=== PATIENT | male | born 1960 | race Caucasian/White ===

== ENCOUNTER 2022-05-22 11:36 | Emergency (ER) | payer OTHER ==
--- OUTSIDE RECORDS SUMMARY | 2022-05-22 11:38 | XMS REPORT | Continuity of Care Document ---
:1960 Author Organization [facility] t Address [address] [place] [address] Care Team Providers Name Role Phone JEFF DEGROOT Attending Clinician Unavailable MARÍA ELENA SANDERS Attending Clinician Unavailable Payers Payer Name Policy Type Policy Number Effective Date Expiration Date S ource OPEN ACCESS [id number] HMO/POS/EPO/PPO - [employer] Problems This patient has no known problems. Allergies, Adverse Reactions, Alerts This patient has no known allergies or adverse reactions. Social History Social Habit Start Date Stop Date Quantity Comments Source Sex Assigned At [birth year] [facility] [employer] [facility] 00:00:00 00:00:00 Medicine Smoking Status Start Date Stop Date Source Tobacco smoking consumption unknown [facility] Medications This patient has no known medications. Procedures This patient has no known procedures. Plan of Care Planned Activity Planned Date Details Comments Source Future Scheduled 2022-03-23 Human immunodeficiency B [facility] 11:15:10 virus screening Medicine (procedure) [code = [id number]] Future Scheduled 2022-03-23 ZOSTER VACCINE (1 of 2) [facility] 11:15:10 [code = ZOSTER VACCINE (1 Me dicine of 2)] Future Scheduled 2022-03-23 COVID-19 Vaccine (3 - Ba [facility] 11:15:10 Booster for Pfizer Medicine series) [code = COVID-19 Vaccine (3 - Booster for Pfizer series)] Future Scheduled 2022-03-23 FLU VACCINE > 6 MONTHS B [facility] 11:15:10 [code = FLU VACCINE > 6 Medi cine MONTHS] Future Scheduled 2022-03-23 Screening for malignant [facility] 11:15:10 neoplasm of colon Medicine (procedure) [code = [id number]] Future Scheduled 2022-03-23 TETANUS SHOT (ADULT) [facility] 11:15:10 [code = TETANUS SHOT Medicin e (ADULT)] Encounters Start End Encounter Admission Attending Care Care Encounter Source Date/Time Date/Time Type Type Clinicians Facility Department ID 2022-03-08 2022-03-08 Office APPLE DEGROOT [id number] [facility] 12:12:45 16:15:40 Visit JEFF AMBULATOR [id number] [employer] [id number] [facility] lexii 810 e 2022-02-04 2022-02-04 Outpatient TOMMY, [facility] [id number] [place] 00:00:00 00:00:00 MARÍA ELENA Mccarthy Method [facility] Results This patient has no known results.
[2022-05-22] MEDS ORDERED: ACETAMINOPHEN 500 MG TAB ONE (13:12)
[2022-05-22] MEDS ORDERED: NA CHLORIDE 0.9% 1,000 ML ONE (13:12)
[2022-05-22 13:20] LABS: Absolute Lymphocytes (CBC) 0.9 K/uL (0.7-4.9); Hematocrit 44.3 % (39.6-49.0); Lymphocytes % 13.3 % (15.3-44.8); MCV 88.3 fL (80-100); MPV 7.4 fL (7.6-11.3); RBC Red Blood Cell Count 5.02 M/uL (4.33-5.43)
[2022-05-22 13:20] LABS: Urine Blood Trace-intact (Negative); Urine Glucose Negative (Negative); Urine Protein Negative (Negative); Urine Specific Gravity 1.025 (1.005-1.030)
[2022-05-22 13:28] LABS: Albumin 4.1 g/dL (3.4-5.0); Bilirubin Total 0.5 mg/dL (0.2-1.0); Protein, Total 7.9 g/dL (6.4-8.2)
[2022-05-22 13:39] LABS: Potassium 4.3 mmol/L (3.5-5.1)
--- NOTE | 2022-05-22 13:52 | RAD REPORT ---
EXAM DESCRIPTION: RAD - Chest Single View - 05/22/2022 1:04 pm CLINICAL HISTORY: MALAISE Chest pain. COMPARISON: Chest Pa And Lat (2 Views) dated 02/16/2019; CHEST PA AND LAT 2 VIEW dated 12/18/2014; CHEST PA AND LAT 2 VIEW dated 12/14/2014; CHEST PA AND LAT 2 VIEW dated 12/13/2014 FINDINGS: Portable technique limits examination quality. The lungs are grossly clear. The heart is normal in size. No displaced fractures. IMPRESSION: No acute intrathoracic process suspected.
--- NOTE | 2022-05-22 14:06 | ER ---
Nurse's Notes [facility] Name: Tyler Riley Age: 61 yrs Sex: Male : 1960 Arrival Date: 05/22/2022 Time: 11:42 Bed 4 Private MD: Tucker Lucero Diagnosis: Influenza due to other identified influenza virus with other respiratory manifestations;SARS-associated coronavirus as the cause of diseases classified elsewhere Presentation: 05/22 11:53 Chief complaint: Spouse and/or significant other states: the patient has been weak and ap3 has had increased confusion X's 2 days. it is also reported the patient has had a decreased appetite. Patients states she thought maybe he had the flu, but she started getting concerned because he was getting worse, not better. Coronavirus screen: Client presents with at least one sign or symptom that may indicate coronavirus-19. Ebola Screen: No symptoms or risks identified at this time. Initial Sepsis Screen: Does the patient meet any 2 criteria? RR > 20 per min. HR > 90 bpm. Initial Sepsis Screen: Does the patient meet any 2 criteria? Does the patient have a suspected source of infection? No. Patient's initial sepsis screen is negative. Risk Assessment: Do you want to hurt yourself or someone else? Patient reports no desire to harm self or others. Onset of symptoms was May 20, 2022. 11:53 Method Of Arrival: Ambulatory ap3 11:53 Acuity: POLLY 3 ap3 Triage Assessment: 11:57 General: Appears ill, Behavior is calm, Reports fever for fatigue for. Pain: Denies ap3 pain. Neuro: Level of Consciousness is awake, alert, Oriented to person, place, patient has dememtia. Gait is steady, Reports weakness. Cardiovascular: Patient's skin is warm and dry. Respiratory: Airway is patent Respiratory effort is even, unlabored, Respiratory pattern is regular, tachypnea. Historical: - Allergies: 14:24 No Known Allergies; jl7 - PMHx: 14:24 Dementia; Hypertensive disorder; jl7 - Immunization history:: Adult Immunizations unknown. - Social history:: Smoking status: unknown. Screenin:58 Abuse screen: Denies threats or abuse. Nutritional screening: No deficits noted. ap3 Tuberculosis screening: No symptoms or risk factors identified. 12:00 Fall Risk Secondary diagnosis (15 points) dementia, IV access (20 points). Total [place] jl7 Fall Scale indicates Low Risk Score (25-44 pts). Fall prevention measures have been instituted. Side Rails Up X 2 Frequent Obs/Assesments occuring Family Present and informed to notify staff if they need to leave bedside As available Patient and Family Educated on Fall Prevention Program and strategies. Assessment: 12:00 General: Appears in no apparent distress. uncomfortable, Behavior is calm, cooperative, jl7 appropriate for age. Pain: Denies pain. Neuro: Level of Consciousness is awake, alert, obeys commands, Oriented to person. Cardiovascular: Patient's skin is warm and dry. Respiratory: Airway is patent Respiratory effort is even, unlabored, Respiratory pattern is regular, symmetrical. Derm: Skin is pink, warm \\T\\ dry. Vital Signs: 11:53 BP 112 / 85; Pulse 127; Resp 24; Temp 100.6; Pulse Ox 99% ; Weight 77.11 kg; Height 5 ap3 ft. 5 in. (165.10 cm); 14:00 BP 117 / 65; Pulse 102; Resp 15; Temp 98; Pulse Ox 96% on R/A; jl7 11:53 Body Mass Index 28.29 (77.11 kg, 165.10 cm) ap3 ED Course: 11:42 Patient arrived in ED. am2 11:42 Tucker Lucero MD is Private Physician. am2 11:56 Triage completed. ap3 11:58 Arm band placed on left wrist. ap3 12:13 Patient has correct armband on for positive identification. Placed in gown. Bed in low ap3 position. Call light in reach. Side rails up X 1. Adult w/ patient. school lunch monitor on. Pulse ox on. NIBP on. Door closed. Noise minimized. 12:17 Titus Norris is PHCP. jl9 12:17 Gilberto Dutton MD is Attending Physician. jl9 12:22 Tod Wayne RN is Primary Nurse. jl7 12:30 Initial lab(s) drawn, by me, sent to lab. COVID swab sent to lab. Inserted saline lock: jl7 22 gauge in left antecubital area, using aseptic technique. Blood collected. 13:05 XRAY Chest (1 view) In Process Unspecified. EDMS 13:35 Flu Sent. kc6 13:35 SARS-COV-2 RT PCR (Document "Date of Onset" if Symptomatic) Sent. kc6 14:28 No provider procedures requiring assistance completed. IV discontinued, intact, jl7 bleeding controlled, No redness/swelling at site. Pressure dressing applied. Administered Medications: 13:08 Drug: Acetaminophen 1000 mg Route: PO; jl7 14:00 Follow up: Response: No adverse reaction; Temperature is decreased jl7 13:09 Drug: NS 0.9% 1000 ml Route: IV; Rate: 1000 ml; Site: left antecubital; jl7 14:00 Follow up: Response: No adverse reaction; IV Status: Completed infusion; IV Intake: jl7 1000ml Medication: 14:00 VIS not applicable for this client. jl7 Intake: 14:00 IV: 1000ml; Total: 1000ml. jl7 Outcome: 14:06 Discharge ordered by . jl9 14:28 Discharged to home ambulatory, with significant other. jl7 14:28 Condition: stable 14:28 Discharge instructions given to patient, family, Instructed on discharge instructions, follow up and referral plans. medication usage, Demonstrated understanding of instructions, follow-up care, medications, Prescriptions given X 1. 14:28 Patient left the ED. jl7 Signatures: Dispatcher [employer] EDMS Tod Wayne RN RN jl7 Claudine Moran Amanda, RN RN ap3 Titus Norris jl9 Chelsea Eric kc6 Corrections: (The following items were deleted from the chart) 12:48 11:56 Allergies: No Known Allergies; ap3 jl 12:48 11:56 PMHx: Dementia; ap3 jl 12:48 11:56 PMHx: Hypertensive disorder; ap3 jl 12:48 11:56 PMHx: Hypothyroidism; ap3 jl9 12:48 11:56 PMHx: enlarged prostate; ap3 jl9 12:48 11:56 Immunization history: Client reports receiving the 2nd dose of the Covid vaccine, 9 12:48 11:56 Social history: Smoking status: Patient denies any tobacco usage or history of. jl9 ap3
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
[2022-05-22 15:21] VITALS: BP 117/65; TEMP 98; O2SAT 96
== END 2022-05-22 14:28 | disposition home or self-care (01) ==
LOC: ER 11:36
DX: U07.1 COVID-19 (principal); I10 Essential (primary) hypertension; F03.90 Unspecified dementia, unspecified severity, without behavioral disturbance, psychotic disturbance, mood disturbance, and anxiety
CPT/HCPCS: 85025; 36415; 83605; 81003; 80053; 87804 ×2; 71045; 96360; 99284; U0003; J7030

== ENCOUNTER 2022-08-01 17:23 | Emergency (ER) | payer OTHER ==
--- OUTSIDE RECORDS SUMMARY | 2022-08-01 17:25 | XMS REPORT | Continuity of Care Document ---
:1960 Author Organization [facility] t Address [address] [place] [address] Care Team Providers Name Role Phone Nic JAMA, Tucker Primary Care Physician JEFF DEGROOT Attending Clinician Unavailable Norma JAMA, Cheo Adams Attending Clinician Payers Payer Name Policy Type Policy Number Effective Date Expiration Date S ource OPEN ACCESS [id number] HMO/POS/EPO/PPO - [employer] Problems This patient has no known problems. Allergies, Adverse Reactions, Alerts This patient has no known allergies or adverse reactions. Social History Social Habit Start Date Stop Date Quantity Comments Source Sex Assigned At [birth year] [facility] 00:00:00 00:00:00 Smoking Status Start Date Stop Date Source Tobacco smoking consumption unknown [facility] Medications This patient has no known medications. Procedures This patient has no known procedures. Plan of Care Planned Activity Planned Date Details Comments Source Future Scheduled 2022-03-23 Human immunodeficiency B [facility] 11:15:10 virus screening Medicine (procedure) [code = [id number]] Future Scheduled 2022-03-23 ZOSTER VACCINE (1 of 2) [facility] Test 11:15:10 [code = ZOSTER VACCINE (1 Me dicine of 2)] Future Scheduled 2022-03-23 COVID-19 Vaccine (3 - Ba [facility] Test 11:15:10 Booster for Pfizer Medicine series) [code = COVID-19 Vaccine (3 - Booster for Pfizer series)] Future Scheduled 2022-03-23 FLU VACCINE > 6 MONTHS B [facility] Test 11:15:10 [code = FLU VACCINE > 6 Medi cine MONTHS] Future Scheduled 2022-03-23 Screening for malignant [facility] 11:15:10 neoplasm of colon Medicine (procedure) [code = [id number]] Future Scheduled 2022-03-23 TETANUS SHOT (ADULT) [facility] 11:15:10 [code = TETANUS SHOT Medicin e (ADULT)] Encounters Start End Encounter Admission Attending Care Care Encounter Source Date/Time Date/Time Type Type Clinicians Facility Department ID 2022-03-08 2022-03-08 Office APPLE DEGROOT [id number] 12:12:45 16:15:40 Visit JEFF AMBULATOR [id number] College Y 0.2.7.2.686 of [id number] Medi lexii 810 e 2022-02-04 2022-02-04 [place] [id number] Methodi 23:59:00 23:59:00 Encounter Cheo StarkeyNuvia [id number] 3.430.2.7 Hospit a .[id number] l .8 2022-02-04 2022-02-04 Outpatient [facility] [id number] [place] 00:00:00 00:00:[address] 2022-01-20 2022-01-20 Travel 1.2.840.1 [id number] Methodi 00:00:00 00:00:[id number] 3.430.2.7 0.2.7.3.698 Ho spita .[id number] 084.8 l .8 2022-01-19 2022-01-19 [address]840.1 [id number] Methodi 00:00:00 00:00:00 Orders Fowler LalitoNuvia [address] 3.430.2.7 Hospit a .[id number] l .8 Results This patient has no known results.
[2022-08-01] MEDS ORDERED: LORAZEPAM 1 MG TABLET ONE (18:56)
[2022-08-01 20:14] LABS: Hematocrit 24.8 % (39.6-49.0); Lymphocytes % 13.3 % (15.3-44.8); MCV 90.7 fL (80-100); MPV 7.3 fL (7.6-11.3); RBC Red Blood Cell Count 2.74 M/uL (4.33-5.43)
[2022-08-01 20:22] LABS: Potassium 3.7 mmol/L (3.5-5.1)
[2022-08-01 20:52] LABS: Urine Blood Negative (Negative); Urine Glucose Negative (Negative); Urine Protein Trace (Negative); Urine Specific Gravity 1.025 (1.005-1.030); Urine pH 6.5 (5.0-7.0)
[2022-08-01] MEDS ORDERED: LORazepam 2 MG/ML VIAL ONE (20:57)
[2022-08-01 21:07] LABS: Urine Mucus Slight /HPF (None Seen); Urine RBC <5 /HPF (None Seen)
--- NOTE | 2022-08-01 21:32 | ER ---
Nurse's Notes [facility] Name: Tyler Riley Age: 62 yrs Sex: Male : 1960 Arrival Date: 08/01/2022 Time: 17:28 Bed 17 Private MD: Diagnosis: Dementia in other diseases classified elsewhere with behavioral disturbance;Decreased urinary output Presentation: 08/01 17:39 Chief complaint: Spouse and/or significant other states: he lives in [place] and he tw2 has alzheimers and dementia. they say he hasnt urinated since last night. he has aphasia and doesn't speak. he does have an enlarged prostate as well. he brought the staff in but he isnt urinating. he has not been eating well since yesterday. he did start abx Sulfa for UTI on 07/30. Coronavirus screen: At this time, the client does not indicate any symptoms associated with coronavirus-19. Ebola Screen: Patient denies travel to an Ebola-affected area in the 21 days before illness onset. Initial Sepsis Screen: Does the patient meet any 2 criteria? No. Patient's initial sepsis screen is negative. Does the patient have a suspected source of infection? No. Patient's initial sepsis screen is negative. Risk Assessment: Do you want to hurt yourself or someone else? Patient reports no desire to harm self or others. Onset of symptoms was August 01, 2022. 17:39 Method Of Arrival: Wheelchair tw2 17:39 Acuity: POLLY 3 tw2 Triage Assessment: 17:43 General: Appears in no apparent distress. well groomed, Behavior is calm. Pain: Unable tw2 to use pain scale. Patient appears quiet. Neuro: Level of Consciousness is awake, Oriented to person. Historical: - Allergies: 17:43 No Known Allergies; tw2 - PMHx: 17:43 Dementia; Hypertensive disorder; Hypothyroidism; Hypercholesterolemia; Pick's disease; tw2 Aphasia; - PSHx: 17:43 None; tw2 - Immunization history:: Adult Immunizations up to date, Client reports receiving the 2nd dose of the Covid vaccine. - Social history:: Smoking status: Patient denies any tobacco usage or history of. Screenin:15 Abuse screen: Denies threats or abuse. Denies injuries from another. Nutritional ll3 screening: No deficits noted. Tuberculosis screening: No symptoms or risk factors identified. 21:33 Fall Risk No fall in past 12 months (0 pts). Secondary diagnosis (15 points) dementia, ll3 IV access (20 points). Ambulatory Aid- None/Bed Rest/Nurse Assist (0 pts). Gait- Normal/Bed Rest/Wheelchair (0 pts) Mental Status- Overestimates/Forgets Limitations (15 pts.). Total De Santiago Fall Scale indicates High Risk Score (45 or more points). Fall prevention measures have been instituted. Side Rails Up X 2 Placed Close to Nursing Station Family Present and informed to notify staff if the need to leave the bedside As available patient and family educated on Fall Prevention Program and Strategies. Assessment: 19:15 General: Appears in no apparent distress. Behavior is calm, cooperative. : ll3 Parent/caregiver report the patient having inability to void since yesterday. Derm: Skin is pink, warm \T\ dry. 20:03 Reassessment: No changes from previously documented assessment. Patient and/or family ll3 updated on plan of care and expected duration. Pain level reassessed. Patient is alert, oriented x 3, equal unlabored respirations, skin warm/dry/pink. 21:05 Reassessment: Pt spouse states pt will not stay in bed and is very anxious, Dr. Murphy ll3 notified, medicated as ordered. Vital Signs: 17:39 BP 109 / 67; Pulse 100; Resp 17; Temp 99.5(TE); Pulse Ox 95% on R/A; Weight 70.31 kg tw2 (R); Height 5 ft. 5 in. (165.10 cm); 20:02 BP 99 / 81; Pulse 98; Resp 18; Pulse Ox 98% on R/A; ll3 21:06 BP 108 / 69; Pulse 96; Resp 17; Pulse Ox 97% on R/A; ll3 17:39 Body Mass Index 25.79 (70.31 kg, 165.10 cm) tw2 ED Course: 17:28 Patient arrived in ED. ja2 17:43 Triage completed. tw2 17:45 Arm band placed on. tw2 18:12 Anil Dowd PA is PHCP. jm 18:12 Gilberto Dutton MD is Attending Physician. jm 18:35 Robel Moreno, REGINE is Primary Nurse. bp 19:15 Patient has correct armband on for positive identification. Placed in gown. Bed in low ll3 position. Call light in reach. Side rails up X 1. 20:02 Moon cath inserted, using sterile technique, 16 Fr., by me, balloon inflated, to ll3 gravity drainage, clamped. 20:02 Initial lab(s) drawn, by me, sent to lab. First set of blood cultures drawn Second set ll3 of blood cultures drawn. Inserted saline lock: 20 gauge in left antecubital area, using aseptic technique. Blood collected. 20:04 Attending Physician role handed off by Gilberto Dutton MD ms3 20:04 Shivam Murphy DO is Attending Physician. ms3 21:32 No provider procedures requiring assistance completed. Moon cath removed intact, ll3 balloon deflated. IV discontinued, intact, bleeding controlled, No redness/swelling at site. Pressure dressing applied. Administered Medications: 19:00 Drug: Ativan (LORazepam) 1 mg Route: PO; bp 21:03 Follow up: Response: No adverse reaction ll3 21:02 Drug: Ativan (LORazepam) 0.5 mg Route: IVP; Site: left antecubital; ll3 21:51 Follow up: Response: No adverse reaction; Marked relief of symptoms ll3 Medication: 21:33 VIS not applicable for this client. ll3 Outcome: 21:31 Discharge ordered by . ms3 21:51 Discharged to home via wheelchair, with friend, with significant other. ll3 21:51 Condition: stable 21:51 Discharge instructions given to family, significant other, Instructed on discharge instructions, follow up and referral plans. Demonstrated understanding of instructions, follow-up care. 21:51 Patient left the ED. ll3 Signatures: Anil Dowd PA PA jmm Wise, Tara, RN RN tw2 Robel Moreno RN RN bp Shivam Murphy DO DO ms3 Joanne Toussaint Lynsea, RN RN ll3
--- NOTE | 2022-08-01 21:32 | EDPHYS ---
Physician Documentation [facility] Name: Tyler Riley Age: 62 yrs Sex: Male : 1960 Arrival Date: 08/01/2022 Time: 17:28 Bed 17 Private MD: ED Physician Shivam Murphy HPI: 08/01 18:19 This 62 yrs old Male presents to ER via Wheelchair with complaints of Urinary Problem. jmm 18:19 This is a 62-year-old male with history of dementia, hypertension, hypothyroidism, jmm hyperlipidemia the presents emerged department with concerns of no urination since last night. Family denies vomiting. Patient is nonverbal. Patient is currently taking Bactrim for UTI. Historical: - Allergies: 17:43 No Known Allergies; tw2 - PMHx: 17:43 Dementia; Hypertensive disorder; Hypothyroidism; Hypercholesterolemia; Pick's disease; tw2 Aphasia; - PSHx: 17:43 None; tw2 - Immunization history:: Adult Immunizations up to date, Client reports receiving the 2nd dose of the Covid vaccine. - Social history:: Smoking status: Patient denies any tobacco usage or history of. ROS: 18:19 Unable to obtain ROS due to altered mental status, baseline dementia. [facility] Exam: 18:19 Head/Face: atraumatic. Eyes: EOMI, no conjunctival erythema appreciated ENT: Moist [facility] Mucus Membranes Neck: Trachea midline, Supple Chest/axilla: Normal chest wall appearance and motion. Cardiovascular: Regular rate and rhythm. No edema appreciated Respiratory: Normal respirations, no respiratory distress appreciated 18:19 Skin: General appearance color normal MS/ Extremity: Moves all extremities, no obvious deformities appreciated, no edema noted to the lower extremities Neuro: Awake and alert Psych: Behavior is normal, Mood is normal, Patient is cooperative and pleasant 18:19 Constitutional: The patient appears in no acute distress. 18:19 Abdomen/GI: Inspection: abdomen appears normal, Bowel sounds: normal, Palpation: soft, nontender, in all quadrants. Vital Signs: 17:39 BP 109 / 67; Pulse 100; Resp 17; Temp 99.5(TE); Pulse Ox 95% on R/A; Weight 70.31 kg tw2 (R); Height 5 ft. 5 in. (165.10 cm); 20:02 BP 99 / 81; Pulse 98; Resp 18; Pulse Ox 98% on R/A; ll3 21:06 BP 108 / 69; Pulse 96; Resp 17; Pulse Ox 97% on R/A; ll3 17:39 Body Mass Index 25.79 (70.31 kg, 165.10 cm) tw2 MDM: 18:19 Patient medically screened. [facility] 21:31 Data reviewed: vital signs, nurses notes, lab test result(s), and as a result, I will ms3 discharge patient. Counseling: I had a detailed discussion with the patient and/or guardian regarding: the historical points, exam findings, and any diagnostic results supporting the discharge/admit diagnosis, lab results, the need for outpatient follow up, to return to the emergency department if symptoms worsen or persist or if there are any questions or concerns that arise at home. Special discussion: I discussed with the patient/guardian in detail that at this point there is no indication for admission to the hospital. It is understood, however, that if the symptoms persist or worsen the patient needs to return immediately for re-evaluation. ED course: Discussed labs with patient's . Patient to return to nursing facility. Patient's understands agrees with plan. Patient to follow-up with primary care physician in 2 to 3 days. All questions were answered. Patient destiny in stable condition, no apparent distress, nontoxic-appearing.. 08/01 19:31 Order name: CBC with Diff; Complete Time: 20:34 [facility] 08/01 19:31 Order name: BMP; Complete Time: 20:34 [facility] 08/01 19:31 Order name: Blood Culture Adult (2) [facility] 08/01 20:34 Order name: Urine Microscopic Only; Complete Time: 21:22 nm3 08/01 20:52 Order name: Urine Dipstick-Ancillary; Complete Time: 20:55 [facility] 08/01 18:19 Order name: Moon; Complete Time: 20:03 [facility] 08/01 20:34 Order name: Urine Dipstick-Ancillary (obtain specimen); Complete Time: 20:54 ms3 Administered Medications: 19:00 Drug: Ativan (LORazepam) 1 mg Route: PO; bp 21:03 Follow up: Response: No adverse reaction ll3 21:02 Drug: Ativan (LORazepam) 0.5 mg Route: IVP; Site: left antecubital; ll3 21:51 Follow up: Response: No adverse reaction; Marked relief of symptoms ll3 Disposition: 08/02 01:11 Co-signature as Attending Physician, Shivam Murphy DO. ms3 01:13 Chart complete. ms3 Disposition Summary: 08/01/22 21:31 Discharge Ordered Location: Home ms3 Condition: Stable ms3 Diagnosis - Dementia in other diseases classified elsewhere with behavioral disturbance ms3 - Decreased urinary output ms3 Followup: ms3 - With: Private Physician - When: 2 - 3 days - Reason: Discharge Instructions: - Discharge Summary Sheet ms3 - Dementia ms3 Forms: - Medication Reconciliation Form ms3 - Thank You Letter ms3 - Antibiotic Education ms3 - Prescription Opioid Use ms3 Signatures: Dispatcher [employer] EDAnil Vickers PA PA jmm Wise, Tara, RN RN tw2 Robel Moreno RN Shivam Childers DO DO ms3 Romi Hannon RN RN ll3 Corrections: (The following items were deleted from the chart) 01:13 01:11 Co-signature as Attending Physician, Shivam Murphy DO I was immediately available ms3 onsite in the emergency department for consultation in the care of the patient. ms3
[2022-08-01 22:24] VITALS: TEMP 99.5
[2022-08-01 22:26] VITALS: BP 108/69; O2SAT 97
== END 2022-08-01 21:51 | disposition home or self-care (01) ==
LOC: ER 17:23
DX: R39.12 Poor urinary stream (principal); F02.80 Dementia in other diseases classified elsewhere, unspecified severity, without behavioral disturbance, psychotic disturbance, mood disturbance, and anxiety
CPT/HCPCS: 36415; 51702; 80048; 81003; 81015; 85025; 87040; 96374; 99284

== ENCOUNTER 2022-08-04 18:56 | Emergency (ER) | payer OTHER ==
--- OUTSIDE RECORDS SUMMARY | 2022-08-04 18:58 | XMS REPORT | Continuity of Care Document ---
:1960 Author Organization [facility] t Address [address] [place] [address] Care Team Providers Name Role Phone Nic JAMA, Tucker Primary Care Physician JEFF DEGROOT Attending Clinician Unavailable Norma JAMA, Cheo Adams Attending Clinician Payers Payer Name Policy Type Policy Number Effective Date Expiration Date S ource OPEN ACCESS [id number] HMO/POS/EPO/PPO - [employer] Problems This patient has no known problems. Allergies, Adverse Reactions, Alerts This patient has no known allergies or adverse reactions. Social History Social Habit Start Date Stop Date Quantity Comments Source Sex Assigned At [birth year] [facility] 00:00:00 00:00:00 Smoking Status Start Date Stop Date Source Tobacco smoking consumption unknown [facility] Medications This patient has no known medications. Procedures This patient has no known procedures. Plan of Care Planned Activity Planned Date Details Comments Source Future Scheduled 2022-03-23 Human immunodeficiency B [facility] of Test 11:15:10 virus screening Medicine (procedure) [code = 008541508] Future Scheduled 2022-03-23 ZOSTER VACCINE (1 of 2) [facility] of Test 11:15:10 [code = ZOSTER VACCINE (1 Me dicine of 2)] Future Scheduled 2022-03-23 COVID-19 Vaccine (3 - Ba [facility] Test 11:15:10 Booster for Pfizer Medicine series) [code = COVID-19 Vaccine (3 - Booster for Pfizer series)] Future Scheduled 2022-03-23 FLU VACCINE > 6 MONTHS B [facility] Test 11:15:10 [code = FLU VACCINE > 6 Medi cine MONTHS] Future Scheduled 2022-03-23 Screening for malignant [facility] 11:15:10 neoplasm of colon Medicine (procedure) [code = 645409311] Future Scheduled 2022-03-23 TETANUS SHOT (ADULT) [facility] 11:15:10 [code = TETANUS SHOT Medicin e (ADULT)] Encounters Start End Encounter Admission Attending Care Care Encounter Source Date/Time Date/Time Type Type Clinicians Facility Department ID 2022-03-08 2022-03-08 Office APPLE DEGROOT [id number] [facility] 12:12:45 16:15:40 Visit JEFF AMBULATOR 350.1.13.21 [employer] 0.2.7.2.686 of [id number] [facility] lexii 810 e 2022-02-04 2022-02-04 [facility], 1.2.840.1 [id number] Methodi 23:59:00 23:59:00 Encounter Cheo Adams [id number] 3.430.2.7 Hospit a .3.872131 l .8 2022-02-04 2022-02-04 [facility], 1.2.840.1 [id number] Methodi 23:59:00 23:59:00 Encounter Cheo Adams [id number] 3.430.2.7 Hospit a .3.868670 l .8 2022-01-20 2022-01-20 Travel 1.2.840.1 [id number] [id number] Methodi 00:00:00 00:00:[id number] 3.430.2.7 0.2.7.3.698 Ho spita .3.428772 084.8 l .8 2022-01-20 2022-01-20 Travel 1.2.840.1 [id number] [id number] Methodi 00:00:00 00:00:[address] 3.430.2.7 0.2.7.3.698 Ho spita .3.349490 084.8 l .8 2022-01-19 2022-01-19 [facility] 1.2.840.1 [id number] Methodi 00:00:00 00:00:00 Orders Cheo Adams [id number] 3.430.2.7 Hospit a .3.915805 l .8 2022-01-19 2022-01-19 [facility], 1.2.840.1 [id number] Methodi 00:00:00 00:00:00 Orders Cheo Adams [id number] 3.430.2.7 Hospit a .3.201132 l .8 Results This patient has no known results.
[2022-08-04 21:15] LABS: Urine Blood 1+ (Negative); Urine Glucose Negative (Negative); Urine Protein Negative (Negative); Urine pH 6.5 (5.0-7.0)
[2022-08-04 21:54] LABS: Calcium Oxalate Crystals- Ur Few /HPF (None Seen); Urine Bacteria <20 /HPF (<20); Urine Crystals Unidentified Few /HPF (None Seen); Urine Mucus 1+ /HPF (None Seen)
--- NOTE | 2022-08-04 21:59 | ER ---
Nurse's Notes [facility] Name: Tyler Riley Age: 62 yrs Sex: Male : 1960 Arrival Date: 08/04/2022 Time: 19:03 Bed 4 Private MD: Diagnosis: Hematuria, unspecified Presentation: 08/04 19:05 Chief complaint: EMS states: Unable to empty bladder x 2 days per care home staff. ss Coronavirus screen: Client denies travel out of the [place] in the last 14 days. Ebola Screen: Patient denies exposure to infectious person. Patient denies travel to an Ebola-affected area in the 21 days before illness onset. Initial Sepsis Screen: Does the patient meet any 2 criteria? No. Patient's initial sepsis screen is negative. Does the patient have a suspected source of infection? No. Patient's initial sepsis screen is negative. Risk Assessment: Do you want to hurt yourself or someone else? Patient reports no desire to harm self or others. Onset of symptoms was August 02, 2022. 19:05 Method Of Arrival: EMS: [facility] 19:05 Acuity: POLLY 3 ss Historical: - Allergies: 19:12 No Known Allergies; ss - PMHx: 19:12 Aphasia; Dementia; Hypercholesterolemia; Hypertensive disorder; Hypothyroidism; Pick's ss disease; - Immunization history:: Adult Immunizations unknown. - Social history:: Smoking status: Patient denies any tobacco usage or history of. Screenin:28 Abuse screen: Denies threats or abuse. Nutritional screening: No deficits noted. vc1 Tuberculosis screening: No symptoms or risk factors identified. Fall Risk None identified. Assessment: 20:29 General: Appears in no apparent distress. Behavior is calm. Pain: Unable to use pain as6 scale. Does not appear to understand pain scale. Neuro: Level of Consciousness is awake, alert, Oriented to pt at baseline. pt has hx of aphasia and dementia . Respiratory: Respiratory effort is even, unlabored. : Parent/caregiver report the patient having inability to void x2 days. 20:31 Reassessment: No changes from previously documented assessment. Patient and/or family vc1 updated on plan of care and expected duration. Pain level reassessed. Vital Signs: 19:00 BP 109 / 64; Pulse 93; Resp 15; Pulse Ox 100% ; vc1 19:05 BP 101 / 69; Pulse 94; Resp 16; Temp 98.6(O); Pulse Ox 97% on R/A; ss 20:00 BP 116 / 76; Pulse 97; Resp 15; Pulse Ox 100% ; vc1 21:46 BP 103 / 63; Pulse 71; Resp 18 S; Pulse Ox 100% on R/A; as6 ED Course: 19:03 Patient arrived in ED. ss 19:04 Homero Powell, REGINE is Primary Nurse. as6 19:07 Gilberto Chauhan PA is PHCP. cp 19:07 Cortney Cortes MD is Attending Physician. cp 19:12 Triage completed. ss 19:12 Arm band placed on right wrist. ss 20:22 Coud inserted, using sterile technique, 14 Fr. Returned clear yellow urine. To gravity as6 drainage. Patient tolerated well. 21:58 Grant Zarate MD is Referral Physician. cp 22:41 Side rails up X 1. Side rails up X2. as6 22:41 No provider procedures requiring assistance completed. Coud removed intact, balloon as6 deflated. Patient did not have IV access during this emergency room visit. Administered Medications: No medications were administered Medication: 22:41 VIS not applicable for this client. as6 Output: 21:43 Urine: 130ml (Moon); Total: 130ml. as6 Outcome: 21:59 Discharge ordered by . cp 22:41 Discharged to home ambulatory, with family. as6 22:41 Condition: stable 22:41 Discharge instructions given to pizza cook, Instructed on discharge instructions, follow up and referral plans. Demonstrated understanding of instructions, follow-up care. 22:41 Patient left the ED. as6 Signatures: Rylee Campoverde, RN RN Gilberto Chauhan PA PA cp Homero Powell, REGINE RN as6 Gaby Lindsey RN RN vc1
--- NOTE | 2022-08-04 21:59 | EDPHYS ---
Physician Documentation [facility] Name: Tyler Riley Age: 62 yrs Sex: Male : 1960 Arrival Date: 08/04/2022 Time: 19:03 Bed 4 Private MD: ED Physician Cortney Cortes HPI: 08/04 19:45 This 62 yrs old Male presents to ER via EMS with complaints of Urinary Problem. cp 19:45 The patient presents with urinary symptoms, possible urinary retention. cp 19:45 Onset: The symptoms/episode began/occurred 2 day(s) ago. cp 19:45 Associated signs and symptoms: Pertinent negatives: diarrhea, fever, vomiting. cp 19:45 Patient is a resident of local residential care facility and was brought to ED with cp concern for urinary retention. Historical: - Allergies: 19:12 No Known Allergies; ss - PMHx: 19:12 Aphasia; Dementia; Hypercholesterolemia; Hypertensive disorder; Hypothyroidism; Pick's ss disease; - Immunization history:: Adult Immunizations unknown. - Social history:: Smoking status: Patient denies any tobacco usage or history of. ROS: 19:50 Constitutional: Negative for fever. cp 19:50 Abdomen/GI: Negative for vomiting, diarrhea, constipation. cp 19:50 Neuro: Negative for altered mental status. 19:50 Unable to obtain ROS due to baseline dementia. Exam: 19:55 Constitutional: The patient appears in no acute distress, alert, awake, non-toxic, well cp developed, well nourished. 19:55 Head/Face: Normocephalic, atraumatic. cp 19:55 Chest/axilla: Inspection: normal. 19:55 Cardiovascular: Rate: normal, Rhythm: regular. 19:55 Respiratory: the patient does not display signs of respiratory distress, Respirations: normal. 19:55 Abdomen/GI: Inspection: abdomen appears normal, Palpation: abdomen is soft and non-tender, in all quadrants. 19:55 Neuro: Orientation: no acute changes, Mentation: no acute changes, Motor: moves all fours, strength is normal. Vital Signs: 19:00 BP 109 / 64; Pulse 93; Resp 15; Pulse Ox 100% ; vc1 19:05 BP 101 / 69; Pulse 94; Resp 16; Temp 98.6(O); Pulse Ox 97% on R/A; ss 20:00 BP 116 / 76; Pulse 97; Resp 15; Pulse Ox 100% ; vc1 21:46 BP 103 / 63; Pulse 71; Resp 18 S; Pulse Ox 100% on R/A; as6 MDM: 19:08 Patient medically screened. cp 20:00 Differential diagnosis: UTI, urinary retention, prostatitis, urethritis. cp 21:58 Data reviewed: vital signs, nurses notes, lab test result(s). cp 21:58 Counseling: I had a detailed discussion with the patient and/or guardian regarding: the cp historical points, exam findings, and any diagnostic results supporting the discharge/admit diagnosis, lab results, to return to the emergency department if symptoms worsen or persist or if there are any questions or concerns that arise at home. 08/04 19:51 Order name: Urine Microscopic Only; Complete Time: 21:56 cp 08/04 21:57 Interpretation: URBC 5-10; Reviewed. 08/04 21:15 Order name: Urine Dipstick-Ancillary; Complete Time: 21:26 EDMS 08/04 21:26 Interpretation: Reviewed. 08/04 19:26 Order name: Bladder Scanner; Complete Time: 20:31 cp 08/04 19:51 Order name: Urine Dipstick-Ancillary (obtain specimen); Complete Time: 21:17 cp Administered Medications: No medications were administered Disposition: 08/05 21:14 STAFF ATTESTATION STATEMENT: I was immediately available onsite in the emergency sd2 department for consultation in the care of this patient. I did not see or examine this patient. Cortney Cortes MD. Disposition Summary: 08/04/22 21:59 Discharge Ordered Location: Home cp Problem: new cp Symptoms: are unchanged cp Condition: Stable cp Diagnosis - Hematuria, unspecified cp Followup: cp - With: Grant Zarate MD - When: 1 - 2 days - Reason: Recheck today's complaints Discharge Instructions: - Discharge Summary Sheet cp - Hematuria, Adult cp Forms: - Medication Reconciliation Form cp - Thank You Letter cp - Antibiotic Education cp - Prescription Opioid Use cp Signatures: Dispatcher [employer] EDMS Rylee Campoverde RN RN Gilberto Hernandez PA PA Cortney Griggs MD MD sd2 Corrections: (The following items were deleted from the chart) 20:58 08/04 19:45 Onset: The symptoms/episode began/occurred today, cp cp
[2022-08-04 22:51] VITALS: TEMP 98.6
[2022-08-04 22:52] VITALS: O2SAT 100
[2022-08-04 22:53] VITALS: BP 103/63
== END 2022-08-04 22:41 | disposition home or self-care (01) ==
LOC: ER 18:56
DX: R31.9 Hematuria, unspecified (principal); I10 Essential (primary) hypertension
CPT/HCPCS: 81003; 81015; 99284

== ENCOUNTER 2022-08-11 05:09 | Emergency (ER) | payer OTHER ==
--- OUTSIDE RECORDS SUMMARY | 2022-08-11 05:11 | XMS REPORT | Continuity of Care Document ---
:1960 Author Organization [facility] t Address [address] [place] [address] Care Team Providers Name Role Phone Nic JAMA, Tucker Primary Care Physician JEFF DEGROOT Attending Clinician Unavailable Norma JAMA, Cheo Adams Attending Clinician Payers Payer Name Policy Type Policy Number Effective Date Expiration Date S ource OPEN ACCESS [id number] HMO/POS/EPO/PPO - [employer] Problems This patient has no known problems. Allergies, Adverse Reactions, Alerts This patient has no known allergies or adverse reactions. Social History Social Habit Start Date Stop Date Quantity Comments Source Sex Assigned At [birth year] [facility] 00:00:00 00:00:00 Smoking Status Start Date Stop Date Source Tobacco smoking consumption unknown [facility] Medications This patient has no known medications. Procedures This patient has no known procedures. Plan of Care Planned Activity Planned Date Details Comments Source Future Scheduled 2022-03-23 COVID-19 Vaccine (3 - Ba [facility] of Test 11:15:10 Booster for Pfizer Medicine series) [code = COVID-19 Vaccine (3 - Booster for Pfizer series)] Future Scheduled 2022-03-23 FLU VACCINE > 6 MONTHS B [facility] of Test 11:15:10 [code = FLU VACCINE > 6 Medi cine MONTHS] Future Scheduled 2022-03-23 Screening for malignant [facility] of Test 11:15:10 neoplasm of colon Medicine (procedure) [code = 489493722] Future Scheduled 2022-03-23 TETANUS SHOT (ADULT) [facility] Test 11:15:10 [code = TETANUS SHOT Medicin e (ADULT)] Future Scheduled 2022-03-23 Human immunodeficiency B [facility] 11:15:10 virus screening Medicine (procedure) [code = 960370776] Future Scheduled 2022-03-23 ZOSTER VACCINE (1 of 2) [facility] 11:15:10 [code = ZOSTER VACCINE (1 Me dicine of 2)] Encounters Start End Encounter Admission Attending Care Care Encounter Source Date/Time Date/Time Type Type Clinicians Facility Department ID 2022-03-08 2022-03-08 Office MIKAYLAAPPLE [id number] [facility] 12:12:45 16:15:40 Visit JEFF AMBULATOR 350.1.13.21 [employer] 0.2.7.2.686 of [id number] [facility] 810 e 2022-02-04 2022-02-04 [facility], 1.2.840.1 [id number] Methodi 23:59:00 23:59:00 Encounter Cheo Adams 11452.1.[address] 3.430.2.7 Hospit a .3.212217 l .8 2022-02-04 2022-02-04 [facility] 1.2.840.1 [id number] Methodi 23:59:00 23:59:00 Encounter Cheo Adams 95922.1.[address] 3.430.2.7 Hospit a .3.562122 l .8 2022-01-20 2022-01-20 Travel 1.2.840.1 1.2.839.426 [id number] Methodi 00:00:00 00:00:[address] 3.430.2.7 0.2.7.3.698 Ho spita .3.934002 084.8 l .8 2022-01-20 2022-01-20 Travel 1.2.840.1 1.2.108.915 [id number] Methodi 00:00:00 00:00:[address] 3.430.2.7 0.2.7.3.698 Ho spita .3.060068 084.8 l .8 2022-01-19 2022-01-19 [facility] 1.2.840.1 [id number] Methodi 00:00:00 00:00:00 Orders Cheo Adams 84820.1.[address] 3.430.2.7 Hospit a .3.913051 l .8 2022-01-19 2022-01-19 [facility], 1.2.840.1 [id number] Methodi 00:00:00 00:00:00 Orders Cheo Adams 40502.1.[address] 3.430.2.7 Hospit a .3.734113 l .8 Results This patient has no known results.
[2022-08-11] MEDS ORDERED: CEFEPIME 1 GM/VIAL ONE (06:05)
[2022-08-11] MEDS ORDERED: NA CHLORIDE 0.9% 100 ML IV ONE (06:05)
[2022-08-11] MEDS ORDERED: NA CHLORIDE 0.9% 1,000 ML ONE (06:05)
[2022-08-11 06:13] LABS: Hematocrit 28.6 % (39.6-49.0); Lymphocytes % 17.2 % (15.3-44.8); MCV 90.9 fL (80-100); RBC Red Blood Cell Count 3.15 M/uL (4.33-5.43)
[2022-08-11 06:15] LABS: Protime INR 1.15
[2022-08-11 06:37] LABS: Albumin 3.5 g/dL (3.4-5.0); Magnesium 2.1 mg/dL (1.8-2.4); Potassium 3.8 mmol/L (3.5-5.1)
[2022-08-11 06:44] LABS: Bilirubin Direct 0.1 mg/dL (0-0.2); Bilirubin Total 0.5 mg/dL (0.2-1.0); Protein, Total 6.9 g/dL (6.4-8.2)
--- NOTE | 2022-08-11 07:27 | RAD REPORT ---
EXAM DESCRIPTION: CT - Head Brain Wo Cont - 08/11/2022 6:35 am CLINICAL HISTORY: Mental status change, persistent or worsening COMPARISON: Head Brain Wo Cont dated 09/08/2021 TECHNIQUE: All CT scans are performed using dose optimization technique as appropriate and may inclu de automated exposure control or mA/KV adjustment according to patient size. FINDINGS: No intracranial hemorrhage, hydrocephalus or extra-axial fluid collection.No areas of brai n edema or evidence of midline shift. Cerebral atrophy. The paranasal sinuses and mastoids are clear. The calvarium is intact. IMPRESSION: No acute intracranial abnormality.
--- NOTE | 2022-08-11 08:00 | EDPHYS ---
Physician Documentation [facility] Name: Tyler Riley Age: 62 yrs Sex: Male : 1960 Arrival Date: 08/11/2022 Time: 05:13 Bed 7 Private MD: ED Physician Gilberto Dutton HPI: 08/11 05:50 This 62 yrs old Male presents to ER via EMS with complaints of ams. laura 05:50 The patient presents with confusion, decreased responsiveness, trouble concentrating. laura Onset: The symptoms/episode began/occurred this morning, today. Possible causes: CVA or TIA, drug use, head injury, low blood sugar, seizure, sepsis. Associated signs and symptoms: Pertinent positives: confusion. Current symptoms: In the emergency department the patient's symptoms are unchanged from the initial presentation, despite home interventions, despite EMS interventions. Patient's baseline: Neuro: alert but confused. The patient has experienced similar episodes in the past, multiple times. Historical: - Allergies: 05:27 No Known Allergies; ll3 - PMHx: 05:27 Aphasia; Dementia; Hypercholesterolemia; Hypertensive disorder; Hypothyroidism; Pick's ll3 disease; ROS: 05:51 Constitutional: Negative for fever, chills, and weight loss, Eyes: Negative for injury, laura pain, redness, and discharge, ENT: Negative for injury, pain, and discharge, Neck: Negative for injury, pain, and swelling, Cardiovascular: Negative for chest pain, palpitations, and edema, Respiratory: Negative for shortness of breath, cough, wheezing, and pleuritic chest pain, Abdomen/GI: Negative for abdominal pain, nausea, vomiting, diarrhea, and constipation, Back: Negative for injury and pain, : Negative for injury, bleeding, discharge, and swelling, MS/Extremity: Negative for injury and deformity, Skin: Negative for injury, rash, and discoloration, Psych: Negative for depression, anxiety, suicide ideation, homicidal ideation, and hallucinations, Allergy/Immunology: Negative for hives, rash, and allergies, Endocrine: Negative for neck swelling, polydipsia, polyuria, polyphagia, and marked weight changes, Hematologic/Lymphatic: Negative for swollen nodes, abnormal bleeding, and unusual bruising. 05:51 Neuro: Positive for altered mental status, weakness. Exam: 05:51 Constitutional: This is a well developed, well nourished patient who is awake, alert, laura and in no acute distress. Head/Face: Normocephalic, atraumatic. Eyes: Pupils equal round and reactive to light, extra-ocular motions intact. Lids and lashes normal. Conjunctiva and sclera are non-icteric and not injected. Cornea within normal limits. Periorbital areas with no swelling, redness, or edema. ENT: Nares patent. No nasal discharge, no septal abnormalities noted. Tympanic membranes are normal and external auditory canals are clear. Oropharynx with no redness, swelling, or masses, exudates, or evidence of obstruction, uvula midline. Mucous membranes moist. Neck: Trachea midline, no thyromegaly or masses palpated, and no cervical lymphadenopathy. Supple, full range of motion without nuchal rigidity, or vertebral point tenderness. No Meningismus. Chest/axilla: Normal chest wall appearance and motion. Nontender with no deformity. No lesions are appreciated. Cardiovascular: Regular rate and rhythm with a normal S1 and S2. No gallops, murmurs, or rubs. Normal PMI, no JVD. No pulse deficits. Respiratory: Lungs have equal breath sounds bilaterally, clear to auscultation and percussion. No rales, rhonchi or wheezes noted. No increased work of breathing, no retractions or nasal flaring. Abdomen/GI: Soft, non-tender, with normal bowel sounds. No distension or tympany. No guarding or rebound. No evidence of tenderness throughout. Back: No spinal tenderness. No costovertebral tenderness. Full range of motion. Male : Normal genitalia with no discharge or lesions. Skin: Warm, dry with normal turgor. Normal color with no rashes, no lesions, and no evidence of cellulitis. MS/ Extremity: Pulses equal, no cyanosis. Neurovascular intact. Full, normal range of motion. Psych: Awake, alert, with orientation to person, place and time. Behavior, mood, and affect are within normal limits. 05:51 Neuro: Orientation: Not oriented to person, place, time, situation, Mentation: slow to respond, confused, Memory: unable to test, Cranial nerves: is grossly normal based on the patient's age, no acute changes, Cerebellar function: unable to test, Motor: is grossly normal based on the patient's age, no acute changes, moves all fours, Sensation: is normal, no obvious gross deficits, Gait: not tested. Deep tendon reflexes are 1 (trace) + in the bilateral brachioradialis, bicep, tricep and patellar and Achilles tendons, Babinski testing is normal, seizure activity, is not displayed by the patient. 05:56 ECG was reviewed by the Attending Physician. laura Vital Signs: 05:23 BP 111 / 70; Pulse 87; Resp 18; Temp 98.7(TE); Pulse Ox 100% on R/A; ll3 07:09 BP 117 / 73; Pulse 83; Resp 14; Pulse Ox 98% on R/A; Pain 0/10; mb8 08:30 BP 112 / 67; Pulse 80; Resp 16; Pulse Ox 96% ; Pain 0/10; mb8 MDM: 05:21 Patient medically screened. laura 05:54 Differential Diagnosis altered mental status. Differential Diagnosis: CVA, electrolyte laura abnormality, alcohol intoxication, hypoglycemia, intracranial bleed, meningitis, overdose, seizure, volume depletion. Data reviewed: vital signs, nurses notes, EMS record, lab test result(s), EKG, radiologic studies, CT scan, plain films. Data interpreted: pvc monitor: rate is 87 beats/min, rhythm is regular, Pulse oximetry: on room air is 100 %. Test interpretation: by ED physician or midlevel provider: ECG, plain radiologic studies. Counseling: I had a detailed discussion with the patient and/or guardian regarding: the historical points, exam findings, and any diagnostic results supporting the discharge/admit diagnosis, lab results, radiology results, the need for further work-up and treatment in the hospital. 08/11 05:24 Order name: Basic Metabolic Panel; Complete Time: 07:[address] [facility] 08/11 05:24 Order name: CBC with Diff; Complete Time: 07:[address] [facility] 08/11 05:24 Order name: LFT's; Complete Time: 07:[address] [facility] 08/11 05:24 Order name: Magnesium; Complete Time: 07:[address] [facility] 08/11 05:24 Order name: NT PRO-BNP; Complete Time: 07:[address] [facility] 08/11 05:24 Order name: PT-INR; Complete Time: 07:[address] [facility] 08/11 05:24 Order name: Troponin HS; Complete Time: 07:[address] [facility] 08/11 05:24 Order name: Blood Culture Adult (2) laura 10/26 05:24 Order name: Lactate; Complete Time: 07:[address] [facility] 08/11 05:24 Order name: SARS-COV-2 RT PCR (Document "Date of Onset" if Symptomatic); Complete Time: laura 07:43 08/11 05:24 Order name: Flu; Complete Time: 07:[address] [facility] 08/11 05:24 Order name: Lipase; Complete Time: 07:[address] [facility] 08/11 05:24 Order name: XRAY Chest (1 view) 08/11 05:24 Order name: EKG; Complete Time: 05:[address] [facility] 08/11 05:24 Order name: Cardiac monitoring; Complete Time: 07:[address] [facility] 08/11 05:24 Order name: EKG - Nurse/Tech; Complete Time: 06:[address] [facility] 08/11 05:24 Order name: IV Saline Lock; Complete Time: 06:[address] [facility] 08/11 05:24 Order name: Labs collected and sent; Complete Time: 06:[address] [facility] 08/11 05:24 Order name: O2 Per Protocol; Complete Time: 05:[address] [facility] 08/11 05:24 Order name: O2 Sat Monitoring; Complete Time: 05:[address] [facility] 08/11 05:48 Order name: CT Head Brain wo Cont; Complete Time: 07:[address] [facility] 08/11 07:16 Order name: Glucose, Ancillary Testing; Complete Time: 07:43 EDMS EC:56 Rate is 55 beats/min. Rhythm is regular. QRS Davidson is Normal. MI interval is normal. QRS laura interval is normal. QT interval is normal. No Q waves. No ST changes noted. Clinical impression: Normal ECG and No evidence of ischemia. Interpreted by me. Reviewed by me. Administered Medications: 06:14 Drug: NS 0.9% 1000 ml Route: IV; Rate: 1 bolus; Site: right antecubital; ll3 08:30 Follow up: IV Status: Completed infusion mb8 06:50 Drug: Cefepime 1 grams Route: IVPB; Rate: 200 ml/hr; Infused Over: 30 mins; Site: right ll3 antecubital; 07:16 Follow up: Response: No adverse reaction; IV Status: Completed infusion jd3 Disposition Summary: 08/11/22 08:00 Discharge Ordered Location: Home laura Problem: new laura Symptoms: have improved laura Condition: Stable laura Diagnosis - Dementia in other diseases classified elsewhere with behavioral disturbance laura Followup: laura - With: Private Physician - When: 2 - 3 days - Reason: Recheck today's complaints, Continuance of care, Re-evaluation by your physician Discharge Instructions: - Discharge Summary Sheet laura - Dementia laura - Vascular Dementia laura - Dementia, Agpu-bf-Vmta laura Forms: - Medication Reconciliation Form laura - Thank You Letter laura - Antibiotic Education laura - Prescription Opioid Use laura Signatures: Dispatcher [employer] EDGilberto Moscoso MD MD cha Loubet, Lynsea, RN RN ll3 Henrique Faith RN jd3 Jeff Dawson RN mb8
--- NOTE | 2022-08-11 08:00 | ER ---
Nurse's Notes [facility] Name: Tyler Riley Age: 62 yrs Sex: Male : 1960 Arrival Date: 08/11/2022 Time: 05:13 Bed 7 Private MD: Diagnosis: Dementia in other diseases classified elsewhere with behavioral disturbance Presentation: 08/11 05:23 Chief complaint: EMS states: Toned out increased combativeness, [facility] reports pt ll3 "throwing things and hitting staff". Coronavirus screen: At this time, the client does not indicate any symptoms associated with coronavirus-19. Ebola Screen: No symptoms or risks identified at this time. Initial Sepsis Screen: Does the patient meet any 2 criteria? No. Patient's initial sepsis screen is negative. Does the patient have a suspected source of infection? No. Patient's initial sepsis screen is negative. Risk Assessment: Do you want to hurt yourself or someone else? Patient reports no desire to harm self or others. Onset of symptoms was August 11, 2022. 05:23 Method Of Arrival: EMS: [facility] ll3 05:23 Acuity: POLLY 3 ll3 Triage Assessment: 05:27 General: Appears in no apparent distress. comfortable, Behavior is calm, cooperative. ll3 Neuro: Level of Consciousness is awake, alert, obeys commands, Oriented to person. Respiratory: Respiratory effort is even, unlabored, Respiratory pattern is regular, symmetrical. Derm: Skin is pink, warm \\T\\ dry. Historical: - Allergies: 05:27 No Known Allergies; ll3 - PMHx: 05:27 Aphasia; Dementia; Hypercholesterolemia; Hypertensive disorder; Hypothyroidism; Pick's ll3 disease; Screenin:30 Abuse screen: Denies threats or abuse. Denies injuries from another. Nutritional ll3 screening: No deficits noted. Tuberculosis screening: No symptoms or risk factors identified. Assessment: 05:31 General: See triage assessment. ll3 06:46 Reassessment: No changes from previously documented assessment. Patient and/or family ll3 updated on plan of care and expected duration. Pain level reassessed. Patient is alert, oriented x 3, equal unlabored respirations, skin warm/dry/pink. Vital Signs: 05:23 BP 111 / 70; Pulse 87; Resp 18; Temp 98.7(TE); Pulse Ox 100% on R/A; ll3 07:09 BP 117 / 73; Pulse 83; Resp 14; Pulse Ox 98% on R/A; Pain 0/10; mb8 08:30 BP 112 / 67; Pulse 80; Resp 16; Pulse Ox 96% ; Pain 0/10; mb8 ED Course: 05:13 Patient arrived in ED. kl 05:21 Gilberto Dutton MD is Attending Physician. laura 05:27 Triage completed. ll3 05:27 Arm band placed on Patient placed in an exam room, on a stretcher, on pulse oximetry. ll3 05:30 Patient has correct armband on for positive identification. Bed in low position. Call ll3 light in reach. Side rails up X2. 05:38 XRAY Chest (1 view) In Process Unspecified. EDMS 05:57 EKG done, by ED staff, reviewed by Gilberto Dutton MD. jw7 06:05 Inserted saline lock: 22 gauge in right antecubital area, using aseptic technique. oe Blood collected. 06:37 CT Head Brain wo Cont In Process Unspecified. EDMS 07:09 Jeff Dawson, REGINE is Primary Nurse. mb8 07:28 Straight cath attempted x2 unsuccessful due to not being able to pass the cathether all mb8 the way. Dr. Dutton aware. Administered Medications: 06:14 Drug: NS 0.9% 1000 ml Route: IV; Rate: 1 bolus; Site: right antecubital; ll3 08:30 Follow up: IV Status: Completed infusion mb8 06:50 Drug: Cefepime 1 grams Route: IVPB; Rate: 200 ml/hr; Infused Over: 30 mins; Site: right ll3 antecubital; 07:16 Follow up: Response: No adverse reaction; IV Status: Completed infusion jd3 Outcome: 08:00 Discharge ordered by . laura 08:20 Discharged to [facility]. Report called to Ricardo hanson 09:00 Condition: stable margie 09:00 Discharge instructions given to [facility], Instructed on discharge instructions, follow up and referral plans. Demonstrated understanding of instructions, follow-up care. 09:01 Patient left the ED. mb8 Signatures: Dispatcher [employer] Kasia Hess RN RN kl Anderson, Corey, MD MD cha Espinosa, Orlando oe Davies, Jonathon, RN RN jd3 Loubet Lynsea, RN RN ll3 Janell Mix jw7 Jeff Dawson RN RN mb8 Corrections: (The following items were deleted from the chart) 06:17 05:23 BP 111 / 70; Pulse 87bpm; Resp 18bpm; Pulse Ox 100% RA; ll3 ll3
[2022-08-11 09:11] VITALS: TEMP 98.7
[2022-08-11 09:41] VITALS: BP 112/67; O2SAT 96
--- NOTE | 2022-08-11 12:37 | RAD REPORT ---
EXAM DESCRIPTION: RAD - Chest Single View - 08/11/2022 5:36 am CLINICAL HISTORY: 62 years Male, COUGH COMPARISON: Prior chest x-ray report from 05/22/2022. The image was unavailable for review. TECHNIQUE: Single portable x-ray view of the chest performed on 08/11/2022 at 5:32 AM FINDINGS: The lungs are well expanded and are clear. There is no evidence of a pneumothorax. The cardiac silhouette is normal in size and configuration. The mediastinal contours are normal. No acute osseous abnormality is identified. No acute soft tissue abnormalities are seen. Lines and tubes: None. Free air: None IMPRESSION: No evidence of acute intrathoracic disease. Electronically signed by: Briana Hunter DO 08/11/2022 5:52 AM CDT Due to temporary technical issues with the PACS/Fluency reporting system, reports are being signed by the in house radiologists without review as a courtesy to insure prompt reporting. The interpreting radiologist is fully responsible for the content of the report.
--- NOTE | 2022-08-11 13:07 | EKG ---
Test Date: 2022-08-11 Test Time: 05:35:16 Managing Broker: ELVIRA MEASUREMENT RESULTS: Intervals: Rate: 85 UT: 132 QRSD: 84 QT: 336 QTc: 399 Commerce: P: 60 UT: 132 QRS: 61 T: 12 INTERPRETIVE STATEMENTS: Normal sinus rhythm Normal ECG Compared to ECG 02/16/2019 09:18:48 No significant changes Electronically Signed On 08-11-22 13:06:07 CDT by Jaspal Krishnan
== END 2022-08-11 09:01 | disposition home or self-care (01) ==
LOC: ER 05:09
DX: G31.01 Pick's disease (principal); F02.818 Dementia in other diseases classified elsewhere, unspecified severity, with other behavioral disturbance; I10 Essential (primary) hypertension; Z20.822 Contact with and (suspected) exposure to COVID-19
CPT/HCPCS: 96365; 96361; 93005; 87040 ×2; 85025; 80048; 36415; 83735; 85610; 82947; 80076; 83605; 84484; 83690; 83880; 87804 ×2; 70450; 71045; 99284; U0003; J7030; J0692

== ENCOUNTER 2022-08-29 13:15 | Inpatient (IN) | payer OTHER ==
--- OUTSIDE RECORDS SUMMARY | 2022-08-29 14:06 | XMS REPORT | Continuity of Care Document ---
:1960 Author Organization [facility] t Address [address] [place] [address] Care Team Providers Name Role Phone Nic JAMA, Tucker Primary Care Physician JEFF DEGROOT Attending Clinician Unavailable Norma JAMA, Cheo Adams Attending Clinician Payers Payer Name Policy Type Policy Number Effective Date Expiration Date S ource OPEN ACCESS [id number] HMO/POS/EPO/PPO - [employer]ET[employer] Problems This patient has no known problems. Allergies, Adverse Reactions, Alerts This patient has no known allergies or adverse reactions. Social History Social Habit Start Date Stop Date Quantity Comments Source Sex Assigned At [birth year] [facility] 00:00:00 00:00:00 Smoking Status Start Date Stop Date Source Tobacco smoking consumption unknown [facility] Medications This patient has no known medications. Procedures This patient has no known procedures. Plan of Care Planned Activity Planned Date Details Comments Source Future Scheduled 2022-03-23 TETANUS SHOT (ADULT) [facility] Test 11:15:10 [code = TETANUS SHOT Medicin e (ADULT)] Future Scheduled 2022-03-23 Human immunodeficiency B [facility] Test 11:15:10 virus screening Medicine (procedure) [code = [id number]] Future Scheduled 2022-03-23 ZOSTER VACCINE (1 of 2) [facility] 11:15:10 [code = ZOSTER VACCINE (1 Me dicine of 2)] Future Scheduled 2022-03-23 COVID-19 Vaccine (3 - Ba [facility] 11:15:10 Booster for Pfizer Medicine series) [code = COVID-19 Vaccine (3 - Booster for Pfizer series)] Future Scheduled 2022-03-23 FLU VACCINE > 6 MONTHS B [facility] 11:15:10 [code = FLU VACCINE > 6 Medi cine MONTHS] Future Scheduled 2022-03-23 Screening for malignant [facility] 11:15:10 neoplasm of colon Medicine (procedure) [code = [id number]] Encounters Start End Encounter Admission Attending Care Care Encounter Source Date/Time Date/Time Type Type Clinicians Facility Department ID 2022-03-08 2022-03-08 Office APPLE DEGROOT [id number] [facility] 12:12:45 16:15:40 Visit JEFF AMBULATOR 350.1.13.21 [employer] 0.2.7.2.686 of [id number] [facility] lexii 810 e 2022-02-04 2022-02-04 [facility], 1.2.840.1 [id number] Methodi 23:59:00 23:59:00 Encounter Cheo Adams 28170.1.[address] 3.430.2.7 Hospit a .3.401158 l .8 2022-02-04 2022-02-04 [facility] 1.2.840.1 [id number] Methodi 23:59:00 23:59:00 Encounter Cheo Adams 96935.1.[address] 3.430.2.7 Hospit a .3.021511 l .8 2022-01-20 2022-01-20 Travel 1.2.840.1 1.2.690.032 [id number] Methodi 00:00:00 00:00:[address] 3.430.2.7 0.2.7.3.698 Ho spita .3.725839 084.8 l .8 2022-01-20 2022-01-20 Travel 1.2.840.1 1.2.985.141 [id number] Methodi 00:00:00 00:00:[address] 3.430.2.7 0.2.7.3.698 Ho spita .3.661108 084.8 l .8 2022-01-19 2022-01-19 [facility] 1.2.840.1 [id number] Methodi 00:00:00 00:00:00 Orders Cheo Adams [address]186.1.[address] 3.430.2.7 Hospit a .3.463186 l .8 2022-01-19 2022-01-19 [facility], 1.2.840.1 [id number] 2 [id number] Methodi 00:00:00 00:00:00 Orders Cheo Adams 25235.1.[address] 3.430.2.7 Hospit a .3.685102 l .8 Results This patient has no known results.
[2022-08-29] MEDS ORDERED: NA CHLORIDE 0.9% 1,000 ML ONE (15:46)
[2022-08-29] MEDS ORDERED: LORazepam 2 MG/ML VIAL ONE (15:46)
[2022-08-29 16:21] LABS: Absolute Lymphocytes (CBC) 0.9 K/uL (0.7-4.9); Hematocrit 36.1 % (39.6-49.0); Lymphocytes % 6.3 % (15.3-44.8); MCV 90.6 fL (80-100); RBC Red Blood Cell Count 3.98 M/uL (4.33-5.43)
[2022-08-29 16:33] LABS: Albumin 3.5 g/dL (3.4-5.0); Bilirubin Total 0.5 mg/dL (0.2-1.0); Potassium 3.9 mmol/L (3.5-5.1); Protein, Total 7.2 g/dL (6.4-8.2)
[2022-08-29 16:41] LABS: Protime INR 1.1
--- NOTE | 2022-08-29 16:54 | RAD REPORT ---
EXAM DESCRIPTION: CTAbdomen Pelvis W Contrast - 08/29/2022 4:28 pm CLINICAL HISTORY: abd pain, diarrhea, fever COMPARISON: <Comparisons> TECHNIQUE: CT of the abdomen and pelvis was performed. All CT scans are performed using dose optimization technique as appropriate and may include automated exposure control or mA/KV adjustment according to patient size. FINDINGS: Lower chest: Trace pericardial effusion. Liver: Hepatic steatosis Biliary: No biliary ductal dilatation. Stomach: No significant focal abnormality. Duodenum: No significant focal abnormality. Pancreas: No significant abnormality. Spleen: No significant abnormality. Adrenal: No suspicious lesions. Kidney/ureter: No hydronephrosis. No renal calculi. Too small to characterize and/or benign appearing renal lesions are noted. Retroperitoneum: No retroperitoneal adenopathy. Vascular: No aneurysm. Bowel: Rectal wall thickening and hyperenhancement.. Moderate rectal stool burden. No bowel obstructi on. Peritoneum: No ascites or free air. Bladder: Mild circumferential bladder wall thickening. Reproductive: No adnexal masses. Bones: No acute fracture. Other: n/a IMPRESSION: Rectal wall thickening and enhancement with moderate rectal formed stool may represent f ecal impaction and stercoral colitis.
--- NOTE | 2022-08-29 18:30 | EDPHYS ---
Physician Documentation [facility] Name: Tyler Riley Age: 62 yrs Sex: Male : 1960 Arrival Date: 08/29/2022 Time: 13:16 Bed 20 Private MD: Tucker Lucero ED Physician Gilberto Dutton HPI: 08/29 19:31 This 62 yrs old Male presents to ER via Wheelchair with complaints of Diarrhea, kb Decreased Appetite, shaking. 19:31 The patient presents to the emergency department with diarrhea. Onset: The kb symptoms/episode began/occurred 2 day(s) ago. Possible causes: unknown. The symptoms are aggravated by nothing. The symptoms are alleviated by nothing. Associated signs and symptoms: Pertinent positives: diarrhea. Severity of symptoms: At their worst the symptoms were moderate in the emergency department the symptoms are unchanged. The patient has not experienced similar symptoms in the past. The patient has not recently seen a physician. states pt has had diarrhea, decreased appetite and chills for 2 days. Historical: - Allergies: 13:48 No Known Allergies; vg1 - PMHx: 13:48 Aphasia; Dementia; Hypercholesterolemia; Hypertensive disorder; Hypothyroidism; Pick's vg1 disease; - Immunization history:: Client reports receiving the 2nd dose of the Covid vaccine. - Social history:: Smoking status: Patient denies any tobacco usage or history of. ROS: 19:31 Constitutional: Negative for fever, chills, and weight loss. kb 19:31 Constitutional: Positive for poor PO intake. 19:31 Abdomen/GI: Positive for diarrhea, Negative for nausea and vomiting. 19:31 All other systems are negative. Exam: 19:31 Constitutional: This is a well developed, well nourished patient who is awake, alert, kb and in no acute distress. Head/Face: Normocephalic, atraumatic. ENT: Moist Mucous membranes Cardiovascular: Regular rate and rhythm with a normal S1 and S2. No gallops, murmurs, or rubs. No pulse deficits. Respiratory: Respirations even and unlabored. No increased work of breathing. Talking in full sentences Skin: Warm, dry with normal turgor. Normal color. MS/ Extremity: Pulses equal, no cyanosis. Neurovascular intact. Full, normal range of motion. 19:31 Abdomen/GI: Inspection: abdomen appears normal, Bowel sounds: normal, Palpation: soft, in all quadrants, mild abdominal tenderness, in the left lower quadrant. Vital Signs: 13:44 BP 134 / 83; Pulse 115; Resp 16; Temp 98.8(TE); Pulse Ox 99% on R/A; Weight 65.32 kg; vg1 Height 5 ft. 6 in. (167.64 cm); 19:00 BP 128 / 87; Pulse 92; Pulse Ox 97% on R/A; ll3 20:00 BP 136 / 84; Pulse 90; Pulse Ox 98% on R/A; ll3 13:44 Body Mass Index 23.24 (65.32 kg, 167.64 cm) vg1 MDM: 13:47 Patient medically screened. kb 18:28 Data reviewed: vital signs, nurses notes. Data interpreted: Pulse oximetry: on room air kb is 99 %. Interpretation: normal. Counseling: I had a detailed discussion with the patient and/or guardian regarding: the historical points, exam findings, and any diagnostic results supporting the discharge/admit diagnosis, lab results, radiology results, the need for further work-up and treatment in the hospital. Physician consultation: Tonio ORONA was contacted at 18:28, regarding admission, to the medical/surgical unit. patient's condition, and will see patient in ED. 18:45 ED course: Severe sepsis criteria met at 1654. Source (A): Colitis; SIRS criteria (B): kb HR and WBC; Organ Dysfunction (C): lactate. 08/29 14:21 Order name: Blood Culture Adult (2) 08/29 14:21 Order name: CBC with Diff; Complete Time: 16:41 kb 08/29 14:21 Order name: CMP; Complete Time: 16:35 kb 08/29 14:21 Order name: Lactate; Complete Time: 16:48 kb 08/29 14:21 Order name: Protime (+inr); Complete Time: 16:41 kb 08/29 14:21 Order name: Ptt, Activated; Complete Time: 16:41 kb 08/29 14:21 Order name: Urine Microscopic Only 08/29 14:21 Order name: Stool Culture 08/29 18:28 Order name: C.difficile 08/29 20:23 Order name: Lactate Sepsis 2 HR Follow-up; Complete Time: 20:59 EDMS 08/30 03:11 Order name: CBC with Automated Diff; Complete Time: 05:52 EDMS 08/30 03:25 Order name: Comprehensive Metabolic Panel; Complete Time: 05:52 EDMS 08/30 03:25 Order name: Magnesium; Complete Time: 05:52 EDMS 08/30 07:21 Order name: SARS-COV-2 Antigen Rapid bd 08/29 14:21 Order name: IV Saline Lock - Large Bore; Complete Time: 15:57 kb 08/29 14:21 Order name: Labs collected and sent; Complete Time: 15:57 kb 08/29 14:21 Order name: O2 Per Protocol; Complete Time: 15:56 kb 08/29 14:21 Order name: O2 Sat Monitoring; Complete Time: 15:56 kb 08/29 14:21 Order name: CT Abd/Pelvis - IV Contrast Only; Complete Time: 16:56 kb 08/30 07:25 Order name: CREATININE WHOLE BLOOD EDMS 08/30 08:47 Order name: SARS-COV-2 Antigen Rapid EDMS Administered Medications: 15:57 Drug: Ativan (LORazepam) 1 mg Route: IVP; Site: right antecubital; bp 16:15 Drug: NS 0.9% 1000 ml Route: IV; Rate: 1000 ml; Site: right forearm; bp 18:45 Drug: Flagyl (metroNIDAZOLE) 500 mg Volume: 100 ml; Route: IVPB; Rate: 200 ml/hr; bp Infused Over: 30 mins; Site: right forearm; 19:29 Drug: Cipro (ciprofloxacin) 400 mg Volume: 200 ml; Route: IVPB; Infused Over: 60 mins; bp Site: right antecubital; 21:24 Not Given (Duplicate Order): D5-1/2 NS 1000 ml IV at 100 ml/hr continuous ll3 Disposition Summary: 08/29/22 18:29 Hospitalization Ordered Hospitalization Status: Inpatient Admission kb Provider: Gerg Santos Condition: Stable kb Problem: new kb Symptoms: are unchanged kb Bed/Room Type: Standard kb Location: Telemetry/MedSurg (Inpatient)(08/30/22 09:50) bd Room Assignment: 204(08/30/22 09:50) bd Diagnosis - Colitis kb - Severe sepsis without septic shock kb Forms: - Medication Reconciliation Form kb - SBAR form kb Addendum: 09/02/2022 09:41 Co-signature as Attending Physician, Gilberto Dutton MD I agree with the assessment and c stokes plan of care. Signatures: Dispatcher [employer] Ame Beltran, PINION SORTER-C PINION SORTER-Ckb Juliet Dahl Corey, MD MD cha Attema, Lee, PINION SORTER-C PINION SORTER-Cla1 Diann Thompson, RN RN cg Robel Moreno RN RN Zulema Thompson RN RN 1 Romi Hannon RN ll3 Corrections: (The following items were deleted from the chart) 08/29 18:44 18:29 Telemetry/MedSurg (Inpatient) kb cg 18:44 18:29 kb cg 08/30 09:50 08/29 18:44 [facility] ER HOLD cg bd 08/30 09:50 08/29 18:44 ERHOLD- cg bd
--- NOTE | 2022-08-29 18:30 | ER ---
Nurse's Notes [facility] Name: Tyler Riley Age: 62 yrs Sex: Male : 1960 Arrival Date: 08/29/2022 Time: 13:16 Bed 20 Private MD: Tucker Lucero Diagnosis: Colitis;Severe sepsis without septic shock Presentation: 08/29 13:44 Chief complaint: Spouse and/or significant other states: diarrhea, decreased appetite x vg1 2 days. Coronavirus screen: Vaccine status: Patient reports receiving the 2nd dose of the covid vaccine. Client denies travel out of the [place] in the last 14 days. Ebola Screen: Patient negative for fever greater than or equal to 101.5 degrees Fahrenheit, and additional compatible Ebola Virus Disease symptoms. Initial Sepsis Screen: Does the patient meet any 2 criteria? HR > 90 bpm. Does the patient have a suspected source of infection? No. Patient's initial sepsis screen is negative. Risk Assessment: Do you want to hurt yourself or someone else? Patient reports no desire to harm self or others. Onset of symptoms was August 27, 2022. 13:44 Method Of Arrival: Wheelchair vg1 13:44 Acuity: POLLY 3 vg1 Triage Assessment: 13:48 General: Appears in no apparent distress. uncomfortable, Behavior is calm. Pain: vg1 Complains of pain in left lower quadrant. GI: Abdomen is tender to palpation in left lower quadrant. Historical: - Allergies: 13:48 No Known Allergies; vg1 - PMHx: 13:48 Aphasia; Dementia; Hypercholesterolemia; Hypertensive disorder; Hypothyroidism; Pick's vg1 disease; - Immunization history:: Client reports receiving the 2nd dose of the Covid vaccine. - Social history:: Smoking status: Patient denies any tobacco usage or history of. Screenin:00 Abuse screen: Denies threats or abuse. Denies injuries from another. Nutritional bp screening: No deficits noted. Tuberculosis screening: No symptoms or risk factors identified. Fall Risk No fall in past 12 months (0 pts). Secondary diagnosis (15 points) Alzheimer's, No IV (0 pts). Ambulatory Aid- None/Bed Rest/Nurse Assist (0 pts). Gait- Weak (10 pts.). Mental Status- Overestimates/Forgets Limitations (15 pts.). Assessment: 15:00 General: SEE TRIAGE NOTE. PT AT BASELINE MENTATION. bp 16:57 Reassessment: , Jessica [phone]. tp1 Vital Signs: 13:44 BP 134 / 83; Pulse 115; Resp 16; Temp 98.8(TE); Pulse Ox 99% on R/A; Weight 65.32 kg; vg1 Height 5 ft. 6 in. (167.64 cm); 19:00 BP 128 / 87; Pulse 92; Pulse Ox 97% on R/A; ll3 20:00 BP 136 / 84; Pulse 90; Pulse Ox 98% on R/A; ll3 13:44 Body Mass Index 23.24 (65.32 kg, 167.64 cm) vg1 ED Course: 13:16 Patient arrived in ED. am2 13:16 Tucker Lucero MD is Private Physician. am2 13:23 [facility] kb 13:23 Gilberto Dutton MD is Attending Physician. kb 13:48 Triage completed. vg1 13:48 Arm band placed on. vg1 15:10 Robel Moreno, REGINE is Primary Nurse. bp 15:55 Inserted saline lock: 22 gauge in right forearm, using aseptic technique. Blood bp collected. 16:27 CT Abd/Pelvis - IV Contrast Only Sent. bp 16:30 CT Abd/Pelvis - IV Contrast Only In Process Unspecified. EDMS 18:29 Greg Santos MD is Hospitalizing Provider. kb 20:22 Inserted saline lock: 22 gauge in left forearm, using aseptic technique. tp1 20:28 Patient has correct armband on for positive identification. Placed in gown. Bed in low ll3 position. Call light in reach. Side rails up X 1. 20:28 No provider procedures requiring assistance completed. ll3 Administered Medications: 15:57 Drug: Ativan (LORazepam) 1 mg Route: IVP; Site: right antecubital; bp 16:15 Drug: NS 0.9% 1000 ml Route: IV; Rate: 1000 ml; Site: right forearm; bp 18:45 Drug: Flagyl (metroNIDAZOLE) 500 mg Volume: 100 ml; Route: IVPB; Rate: 200 ml/hr; bp Infused Over: 30 mins; Site: right forearm; 19:29 Drug: Cipro (ciprofloxacin) 400 mg Volume: 200 ml; Route: IVPB; Infused Over: 60 mins; bp Site: right antecubital; 21:24 Not Given (Duplicate Order): D5-1/2 NS 1000 ml IV at 100 ml/hr continuous ll3 Medication: 20:28 VIS not applicable for this client. ll3 Outcome: 18:29 Decision to Hospitalize by Provider. kb 08/30 11:19 Patient left the ED. iw Signatures: Dispatcher [employer] EDAme Regalado, GRAIN ELEVATOR MOTOR STARTER-C GRAIN ELEVATOR MOTOR STARTER-CkEli Jackson, RN RN iw Claudine Moran Brian RN RN bp Zulema Thompson RN RN vg1 Romi Hannon RN RN ll3 Elvira Zhong RN RN tp1
[2022-08-29] MEDS ORDERED: CIPROFLOXACIN 400mg IV 400 MG/200 ML BAG IV ONE (18:45)
[2022-08-29] MEDS ORDERED: METRONIDAZOLE 500mg IVPB 500 MG/100 ML BAG IV ONE (18:45)
[2022-08-29] MEDS ORDERED: D5 0.45 NS 1,000 ML IV ONE (19:43)
[2022-08-29] MEDS ORDERED: ONDANSETRON 4 MG/2 ML VIAL IV PRN (20:02)
--- NOTE | 2022-08-29 20:04 | P.HP ---
Certification for Inpatient Patient admitted to: Inpatient With expected LOS: >2 Midnights Patient will require the following post-hospital care: None Practitioner: I am a practitioner with admitting privileges, knowledge of patient current condition, hospital course, and medical plan of care. Services: Services provided to patient in accordance with Admission requirements found in Title 42 Section 412.3 of the Code of Federal Regulations Patient History Date of Service: 08/29/22 Reason for admission: Colitis, severe sepsis History of Present Illness: 62-year-old male with history of Alzheimer's dementia, hyperlipidemia, hypothyroidism, hypertension presents to the emergency department for diarrhea. Family reports patient stays in the memory care unit at [facility] in he has been there for approximately 1 month now today was noted that he was having diarrhea, seemed to be in pain. He was therefore referred to the emergency department for evaluation. Patient was evaluated in the emergency department and soft with significant for leukocytosis with white blood cell count 14.8 hemoglobin 11.[address] abdomen pelvis performed with IV contrast as patient seems experiencing left lower quadrant tenderness to palpation CT revealed rectal wall thickening and enhancement with moderate rectal formed stool may represent fecal impaction and stercoral colitis. bedside reports patient's had 3 loose, diarrheal stools during the day today. Patient is oriented x0 primarily nonverbal with severe Alzheimer/dementia. Will admit for further evaluation and management. Allergies No Known Allergies Allergy (Verified 12/13/14 23:53) Home Medications: Fenofibric Acid (Choline) [Fenofibric Acid] 135 mg PO DAILY 12/14/14 Levothyroxine [Synthroid*] 50 mcg PO DAILY 12/14/14 Lisinopril/Hydrochlorothiazide [Zestoretic 10-12.5 mg Tablet] 1 each PO DAILY 12/14/14 Promethazine HCl/Codeine [Promethazine-Codeine Syrup] 5 ml PO Q8HP PRN 10 Days syrup 12/15/14 levoFLOXacin [Levaquin*] 500 mg PO DAILY #10 tab 12/15/14 - Past Medical/Surgical History Diabetic: No -: htn -: Alzheimer's dementia -: Hyperlipidemia -: Hypothyroidism -: None Psychosocial/ Personal History: Patient is resident at [facility] in memory unit for last 1 month - Family History Father -: Hypertension, Cancer - Social History Alcohol use: Yes CD- Drugs: No Caffeine use: Yes Place of Residence: Home Review of Systems is unable to be obtained Physical Examination - Physical Exam General: Alert, Demented, Confused HEENT: Atraumatic, PERRLA, Mucous membr. moist/pink, EOMI, Sclerae nonicteric Neck: Supple, 2+ carotid pulse no bruit, No LAD, Without JVD or thyroid abnormality Respiratory: Clear to auscultation bilaterally, Normal air movement Cardiovascular: Regular rate/rhythm, Normal S1 S2 Capillary refill: <2 Seconds Gastrointestinal: Normal bowel sounds, No masses, No rebound, No guarding, [place] (Mild left lower quadrant abdominal tenderness) Musculoskeletal: No tenderness Integumentary: No rashes Neurological: Normal tone - Studies Laboratory Data (last 24 hrs) 08/29/22 16:00: PT 12.1, INR 1.10, APTT 28.6 08/29/22 16:00: Sodium 142, Potassium 3.9, BUN 25 H, Creatinine 0.71, Glucose 103, Total Bilirubin 0.5, AST 20, ALT 21, Alkaline Phosphatase 66 08/29/22 16:00: WBC 14.80 H, Hgb 11.9 L, Hct 36.1 L, Plt Count 252 Assessment and Plan - Plan Assessment: Severe sepsis secondary to colitis Advance Alzheimer's dementia Hypertension Hyperlipidemia Hypothyroidism Plan: Severe sepsis secondary to colitis: SIRS criteria present including leukocytosis, tachycardia, source of infection identified with colitis. Lactic acid elevated 3.6 initially. Repeat lactate pending meets criteria for severe sepsis. No hypotension at this time. Continue IV antibiotics. Cipro/Flagyl. Will need to rule out C. difficile specimen ordered pending collection currently. reports diarrhea started this morning has had 3 episodes so far today. No recent antibiotic use no history of C. difficile. Advance Alzheimer's dementia: Patient stays at memory care unit at [facility] and reports he gets very agitated frequently and required medication for sedation. Hypertension: Hold oral antihypertensive agents to ensure no hypotension develops this evening. Hyperlipidemia: Continue home meds when appropriate Hypothyroidism: Continue home meds when appropriate DVT PPX: Lovenox Code status: Full Discharge Plan: Home Plan to discharge in: 72 Hours - Advance Directives Does patient have a Living Will: No Does patient have a Durable POA for Healthcare: Yes - Code Status/Comfort Care Code Status Assessed: Yes (Full code) Critical Care: No Time Spent Managing Pts Care (In Minutes): 70
[2022-08-29] MEDS: CIPROFLOXACIN 400mg IV 400 MG/200 ML BAG IV SCH (21:00)
[2022-08-29] MEDS: D5 0.45 NS 1,000 ML IV SCH (21:00)
[2022-08-30] MEDS ORDERED: METRONIDAZOLE 500mg IVPB 500 MG/100 ML BAG IV SCH (01:00)
[2022-08-30] MEDS ORDERED: METRONIDAZOLE 500mg IVPB 500 MG/100 ML BAG IV ONE (02:58)
[2022-08-30 02:59] LABS: Absolute Lymphocytes (CBC) 0.8 K/uL (0.7-4.9); Lymphocytes % 8.5 % (15.3-44.8); MPV 8.1 fL (7.6-11.3)
[2022-08-30] MEDS: METRONIDAZOLE 500mg IVPB 500 MG/100 ML BAG IV SCH ×3 (03:00→20:03)
[2022-08-30 03:24] LABS: Albumin 2.7 g/dL (3.4-5.0); Bilirubin Total 0.4 mg/dL (0.2-1.0); Magnesium 1.9 mg/dL (1.8-2.4); Potassium 3.5 mmol/L (3.5-5.1); Protein, Total 5.8 g/dL (6.4-8.2)
[2022-08-30] MEDS: D5 0.45 NS 1,000 ML IV SCH ×2 (06:02→12:11)
[2022-08-30 08:47] LABS: SARS-CoV-2 Antigen Rapid Res Negative (Negative)
[2022-08-30] MEDS ORDERED: HALOPERIDOL LACT 5 MG/ML INJ ONE (08:59)
[2022-08-30] MEDS: HALOPERIDOL LACT 5 MG/ML INJ IV PRN ×2 (09:00→15:05)
[2022-08-30] MEDS: ENOXAPARIN 40 MG/0.4 ML SQ SCH (12:11)
[2022-08-30] MEDS: CIPROFLOXACIN 400mg IV 400 MG/200 ML BAG IV SCH ×2 (12:11→20:04)
--- NOTE | 2022-08-30 17:57 | P.PN ---
Date of Service: 08/30/22 Subjective: Patient agitated this morning, not wanting to stay in bed, trying to ambulate around, not following commands ROS: 10 point ROS unable to be obtained Physical exam GEN: alert, unable to understand what he is trying to say HEENT: Normal conjunctiva, sclera anicteric CV: Regular rate and rhythm, no edema Pulm: Nonlabored respirations on room air ABD: Soft, nontender, nondistended Neuro: unintelligible speech / mumbling, extended hand for handshake, moves all extremities Problem List Severe sepsis secondary to colitis Advance Alzheimer's dementia Hypertension Hyperlipidemia Hypothyroidism Severe sepsis secondary to colitis: SIRS criteria present including leukocytosis, tachycardia, source of infection identified with colitis. Lactic acid elevated 3.6 initially. continue IV cipro/flagyl c.diff ordered on admission; however pt without significant leukocytosis, diarrhea after ?constipation diarrhea x3 episodes today, after CT - which noted ?stercoral ulcer, consult GI vs surgery if needed Advance Alzheimer's dementia: Patient stays at memory care unit at [facility] and reports he gets very agitated frequently and required medication for sedation. Hypertension: Hold oral antihypertensive agents to ensure no hypotension develops this evening. Hyperlipidemia: Continue home meds when appropriate Hypothyroidism: Continue home meds when appropriate DVT PPX: Lovenox Code status: Full Dispo: back to memory care unit, ~2-3 days Time Spent Managing Pts Care (In Minutes): 35
[2022-08-31] MEDS: METRONIDAZOLE 500mg IVPB 500 MG/100 ML BAG IV SCH ×3 (03:00→20:01)
[2022-08-31] MEDS: D5 0.45 NS 1,000 ML IV SCH ×3 (03:01→22:02)
[2022-08-31 06:06] LABS: Absolute Lymphocytes (CBC) 0.8 K/uL (0.7-4.9); Hematocrit 33.2 % (39.6-49.0); Lymphocytes % 8.1 % (15.3-44.8); MCV 89.3 fL (80-100); MPV 7.4 fL (7.6-11.3); RBC Red Blood Cell Count 3.72 M/uL (4.33-5.43)
[2022-08-31 06:26] LABS: Albumin 2.8 g/dL (3.4-5.0); Bilirubin Total 0.6 mg/dL (0.2-1.0); Magnesium 1.7 mg/dL (1.8-2.4); Protein, Total 6.1 g/dL (6.4-8.2)
[2022-08-31] MEDS ORDERED: MAGNESIUM SULFATE 1 gm IVPB 1 GM/100 ML BAG IV ONE (08:00)
[2022-08-31] MEDS: CIPROFLOXACIN 400mg IV 400 MG/200 ML BAG IV SCH ×2 (08:24→21:35)
[2022-08-31] MEDS: ENOXAPARIN 40 MG/0.4 ML SQ SCH (08:26)
[2022-08-31] MEDS: HALOPERIDOL LACT 5 MG/ML INJ IV PRN (08:26)
[2022-08-31] MEDS: KCL 20 MEQ/100 mL IVPB 20 MEQ/100 ML BAG IV SCH ×3 (08:26→23:13)
--- NOTE | 2022-08-31 08:26 | EKG ---
Test Date: 2022-08-29 Test Time: 20:19:42 Pool Nurse: RODRIGUEZ MEASUREMENT RESULTS: Intervals: Rate: 101 MO: 130 QRSD: 86 QT: 318 QTc: 412 Hunter: P: 60 MO: 130 QRS: 65 T: 77 INTERPRETIVE STATEMENTS: Sinus tachycardia Otherwise normal ECG Compared to ECG 08/11/2022 05:35:16 Sinus rhythm no longer present Electronically Signed On 08-31-22 08:20:37 ORTHOPAEDIC PHYSICIAN ASSISTANT by Riley Cao
--- NOTE | 2022-08-31 15:44 | P.PN ---
Subjective Date of Service: 08/31/22 Chief Complaint: Colitis, severe sepsis Patient cannot give any subjective complaint. No reported diarrhea. No reported agitation. Mental status at baseline. Physical Examination - Vital Signs Temperature: 97.5 F Blood Pressure: 108/69 Pulse: 78 Respirations: 16 Pulse Ox (%): 97 Assessment And Plan - Plan Physical exam GEN: alert, unable to understand what he is trying to say HEENT: Normal conjunctiva, sclera anicteric CV: Regular rate and rhythm, no edema Pulm: Nonlabored respirations on room air ABD: Soft, nontender, nondistended Neuro: unintelligible speech / mumbling, extended hand for handshake, moves all extremities Problem List Severe sepsis secondary to colitis Advance Alzheimer's dementia Hypertension Hyperlipidemia Hypothyroidism Severe sepsis secondary to colitis: SIRS criteria present including leukocytosis, tachycardia, source of infection identified with colitis. Lactic acid elevated 3.6 initially. Lactic acidosis resolved. Leukocytosis resolved continue IV cipro/flagyl c.diff order cancelled. No more diarrhea. Advance Alzheimer's dementia: Patient stays at memory care unit at [facility] and reports he gets very agitated frequently and require medication for sedation. Patient passed swallow evaluation. Patient started on regular diet. Hypertension: Continue to hold antihypertensive Hyperlipidemia: Continue home meds when appropriate Hypothyroidism: Continue home meds when appropriate DVT PPX: Lovenox Code status: Full Dispo: back to memory care unit once patient tolerates feeding. Time Spent Managing Pts Care (In Minutes): 27
[2022-08-31 22:25] VITALS: BMI 21.1
[2022-09-01] MEDS: KCL 20 MEQ/100 mL IVPB 20 MEQ/100 ML BAG IV SCH (01:28)
[2022-09-01 03:28] VITALS: O2SAT 95
[2022-09-01] MEDS: METRONIDAZOLE 500mg IVPB 500 MG/100 ML BAG IV SCH (03:34)
[2022-09-01 04:55] LABS: Magnesium 1.8 mg/dL (1.8-2.4); Potassium 3.4 mmol/L (3.5-5.1)
[2022-09-01] MEDS: D5 0.45 NS 1,000 ML IV SCH (07:55)
[2022-09-01] MEDS: ENOXAPARIN 40 MG/0.4 ML SQ SCH (07:55)
[2022-09-01] MEDS ORDERED: MAGNESIUM SULFATE 1 gm IVPB 1 GM/100 ML BAG IV ONE (08:00)
--- NOTE | 2022-09-01 08:10 | P.DS ---
Admission Date: 08/29/22 Discharge Date: 09/01/22 Disposition: ROUTINE DISCHARGE Discharge Condition: FAIR Reason for Admission: Colitis, severe sepsis Brief History of Present Illness: 62-year-old male with history of Alzheimer's dementia, hyperlipidemia, hypothyroidism, hypertension presents to the emergency department for diarrhea. Family reports patient stays in the memory care unit at [facility] in he has been there for approximately 1 month. Patient was evaluated in the emergency department and soft with significant for leukocytosis with white blood cell count 14.8 hemoglobin 11.[address] revealed rectal wall thickening and enhancement with moderate rectal formed stool may represent fecal impaction and stercoral colitis. bedside reports patient's had 3 loose, diarrheal stools during the day. Patient admitted for further management. Hospital Course: Diagnosis Severe sepsis secondary to colitis Advance Alzheimer's dementia Hypertension Hyperlipidemia Hypothyroidism Severe sepsis secondary to colitis: SIRS criteria present including leukocytosis, tachycardia, source of infection identified as colitis. Lactic acid elevated 3.6 initially. Lactic acidosis resolved with IV hydration. Leukocytosis resolved with IV Cipro and Flagyl Diarrhea resolved. Patient vitals were stable. Advance Alzheimer's dementia: Patient stays at memory care unit at [facility] and reports he gets very agitated frequently and require medication for sedation. Patient passed swallow evaluation and tolerated regular diet. Hypertension: His antihypertensives were held during the hospital stay and resumed on discharge. Hyperlipidemia: Continued home meds when appropriate Hypothyroidism: Continued home meds dose synthroid. He is clinically stable for discharge back to memory care unit. Other regular home medications resumed on discharge. Vital Signs/Physical Exam: Temp Pulse Resp BP Pulse Ox 98.2 F 86 17 115/73 95 09/01/22 04:00 09/01/22 04:00 09/01/22 04:00 09/01/22 04:00 09/01/22 04:00 General: In no apparent distress, Confused HEENT: Mucous membr. moist/pink Neck: JVD not distended Respiratory: Clear to auscultation bilaterally, Normal air movement Cardiovascular: No edema, Regular rate/rhythm, Normal S1 S2 Gastrointestinal: Soft and benign, Non-distended Musculoskeletal: No swelling Laboratory Data at Discharge: WBC 9.40 K/uL (4.3-10.9) 08/31/22 05:54 Hgb 11.2 g/dL (13.6-17.9) L 08/31/22 05:54 Hct 33.2 % (39.6-49.0) L 08/31/22 05:54 Plt Count 186 K/uL (152-406) 08/31/22 05:54 PT 12.1 SECONDS (9.5-12.5) 08/29/22 16:00 INR 1.10 08/29/22 16:00 APTT 28.6 SECONDS (24.3-36.9) 08/29/22 16:00 Sodium 140 mmol/L (136-145) 09/01/22 04:22 Potassium 3.4 mmol/L (3.5-5.1) L 09/01/22 04:22 BUN 5 mg/dL (7-18) L 09/01/22 04:22 Creatinine 0.28 mg/dL (0.55-1.3) L 09/01/22 04:22 Glucose 107 mg/dL (74-106) H 09/01/22 04:22 Magnesium 1.8 mg/dL (1.8-2.4) 09/01/22 04:22 Total Bilirubin 0.6 mg/dL (0.2-1.0) 08/31/22 05:34 AST 27 U/L (15-37) 08/31/22 05:34 ALT 22 U/L (12-78) 08/31/22 05:34 Alkaline Phosphatase 51 U/L (45-117) 08/31/22 05:34 Home Medications: Fenofibric Acid (Choline) [Fenofibric Acid] 135 mg PO DAILY 12/14/14 Levothyroxine [Synthroid*] 50 mcg PO DAILY 12/14/14 Lisinopril/Hydrochlorothiazide [Zestoretic 10-12.5 mg Tablet] 1 each PO DAILY 12/14/14 Promethazine HCl/Codeine [Promethazine-Codeine Syrup] 5 ml PO Q8HP PRN 10 Days syrup 12/15/14 Ciprofloxacin HCl [Cipro] 500 mg PO BID #8 tab 09/01/22 metroNIDAZOLE [Flagyl] 500 mg PO Q8H #12 tab 09/01/22 New Medications: Ciprofloxacin HCl [Cipro] 500 mg PO BID #8 tab metroNIDAZOLE [Flagyl] 500 mg PO Q8H #12 tab Diet: Regular Activity: Fall precautions Followup: Tucker Lucero MD [Primary Care Provider] - 1-2 Weeks Time spent managing pt's care (in minutes): 37
[2022-09-01 08:30] VITALS: BP 121/72; TEMP 98.4
[2022-09-01] MEDS: CIPROFLOXACIN 400mg IV 400 MG/200 ML BAG IV SCH (09:00)
[2022-09-01] MEDS ORDERED: metroNIDAZOLE 500 MG TABLET PO SCH (09:30)
[2022-09-01] MEDS ORDERED: CIPROFLOXACIN HCL 500 MG TAB PO SCH (10:00)
== END 2022-09-01 10:48 | disposition home or self-care (01) | DRG 872 ==
LOC: ER 13:15 → ERHOLD 19:27 → 2ND 08-30 10:24
PROVIDERS: ADMIT Hospitalist; ATTEND Internal Medicine
DX: A41.9 Sepsis, unspecified organism (principal); E87.20 Acidosis, unspecified; R65.20 Severe sepsis without septic shock; K52.9 Noninfective gastroenteritis and colitis, unspecified; E78.5 Hyperlipidemia, unspecified; I10 Essential (primary) hypertension; E03.9 Hypothyroidism, unspecified; G30.9 Alzheimer's disease, unspecified; F02.80 Dementia in other diseases classified elsewhere, unspecified severity, without behavioral disturbance, psychotic disturbance, mood disturbance, and anxiety; Z79.890 Hormone replacement therapy; Z79.899 Other long term (current) drug therapy; Z20.822 Contact with and (suspected) exposure to COVID-19
CPT/HCPCS: 36415; 74177; 80048; 80053; 82565; 83605; 83735; 84132; 85025; 85610; 85730; 87040; 87045; 87046; 87811; 93005; 99284; J0744; J1630; J1650; J3475; J3480; J7030; J7799; Q9967

== ENCOUNTER 2022-09-02 11:23 | Inpatient (IN) | payer OTHER ==
--- OUTSIDE RECORDS SUMMARY | 2022-09-02 11:27 | XMS REPORT | Continuity of Care Document ---
:1960 Author Organization [facility] t Address [address] [place] [address] Care Team Providers Name Role Phone Nic JAMA, Tucker Primary Care Physician JEFF DEGROOT Attending Clinician Unavailable Norma JAMA, Cheo Adams Attending Clinician Payers Payer Name Policy Type Policy Number Effective Date Expiration Date S ource OPEN ACCESS [id number] HMO/POS/EPO/PPO - [employer] Problems This patient has no known problems. Allergies, Adverse Reactions, Alerts This patient has no known allergies or adverse reactions. Social History Social Habit Start Date Stop Date Quantity Comments Source Sex Assigned At [birth year] [facility] 00:00:00 00:00:00 Smoking Status Start Date Stop Date Source Tobacco smoking consumption unknown [facility] Medications This patient has no known medications. Procedures This patient has no known procedures. Plan of Care Planned Activity Planned Date Details Comments Source Future Scheduled 2022-03-23 ZOSTER VACCINE (1 of 2) [facility] 11:15:10 [code = ZOSTER VACCINE (1 Me dicine of 2)] Future Scheduled 2022-03-23 COVID-19 Vaccine (3 - [facility] Test 11:15:10 Booster for Pfizer Medicine series) [code = COVID-19 Vaccine (3 - Booster for Pfizer series)] Future Scheduled 2022-03-23 FLU VACCINE > 6 MONTHS B [facility] Test 11:15:10 [code = FLU VACCINE > 6 Medi cine MONTHS] Future Scheduled 2022-03-23 Screening for malignant [facility] 11:15:10 neoplasm of colon Medicine (procedure) [code = 923655974] Future Scheduled 2022-03-23 TETANUS SHOT (ADULT) [facility] 11:15:10 [code = TETANUS SHOT Medicin e (ADULT)] Future Scheduled 2022-03-23 Human immunodeficiency B [place] [facility] 11:15:10 virus screening Medicine (procedure) [code = 586302563] Encounters Start End Encounter Admission Attending Care Care Encounter Source Date/Time Date/Time Type Type Clinicians Facility Department ID 2022-03-08 2022-03-08 Office MIKAYLA YANELITye [id number] [facility] 12:12:45 16:15:40 Visit JEFF AMBULATOR 350.1.13.21 College Y 0.2.7.2.686 of [id number] [facility] 810 e 2022-02-04 2022-02-04 [facility], 1.2.840.1 [id number] Methodi 23:59:00 23:59:00 Encounter Cheo Adams [id number] 3.430.2.7 Hospit a .3.852545 l .8 2022-02-04 2022-02-04 [facility] 1.2.840.1 [id number] Methodi 23:59:00 23:59:00 Encounter Cheo Adams [id number] 3.430.2.7 Hospit a .3.576826 l .8 2022-01-20 2022-01-20 Travel 1.2.840.1 [id number] Methodi 00:00:00 00:00:[address] 3.430.2.7 0.2.7.3.698 Ho spita .3.842602 084.8 l .8 2022-01-20 2022-01-20 Travel 1.2.840.1 [id number] [id number] Methodi 00:00:00 00:00:[address] 3.430.2.7 0.2.7.3.698 Ho spita .3.188261 084.8 l .8 2022-01-19 2022-01-19 [facility] 1.2.840.1 [id number] Methodi 00:00:00 00:00:00 Orders Cheo Adams [id number] 3.430.2.7 Hospit a .3.874769 l .8 2022-01-19 2022-01-19 [facility], 1.2.840.1 [id number] Methodi 00:00:00 00:00:00 Orders Cheo Adams 50384.1.[address] 3.430.2.7 Hospit a .3.236556 l .8 Results This patient has no known results.
[2022-09-02] MEDS ORDERED: NA CHLORIDE 0.9% 1,000 ML ONE (11:57)
[2022-09-02] MEDS ORDERED: LORazepam 2 MG/ML VIAL ONE (11:57)
--- NOTE | 2022-09-02 12:08 | RAD REPORT ---
EXAM DESCRIPTION: RAD - Chest Single View - 09/02/2022 11:56 am CLINICAL HISTORY: COUGH Chest pain. COMPARISON: Chest Single View dated 08/11/2022; Chest Single View dated 05/22/2022; Chest Pa And Lat ( 2 Views) dated 02/16/2019; CHEST PA AND LAT 2 VIEW dated 12/18/2014 FINDINGS: Portable technique limits examination quality. The lungs are grossly clear. The heart is normal in size. No displaced fractures. IMPRESSION: No acute intrathoracic process suspected.
--- NOTE | 2022-09-02 12:12 | RAD REPORT ---
EXAM DESCRIPTION: CT - Head Brain Wo Cont - 09/02/2022 11:54 am CLINICAL HISTORY: Mental status change, persistent or worsening Headache, drowsiness COMPARISON: Head Brain Wo Cont dated 08/11/2022; Head Brain Wo Cont dated 09/08/2021 TECHNIQUE: All CT scans are performed using dose optimization technique as appropriate and may inclu de automated exposure control or mA/KV adjustment according to patient size. FINDINGS: No intracranial hemorrhage, hydrocephalus or extra-axial fluid collection.Mild generalized brain atrophy.No areas of brain edema or evidence of midline shift. The paranasal sinuses and mastoids are clear. The calvarium is intact. IMPRESSION: No acute intracranial abnormality.
[2022-09-02 13:07] LABS: Absolute Lymphocytes (CBC) 0.5 K/uL (0.7-4.9); Hematocrit 42.6 % (39.6-49.0); Lymphocytes % 4.6 % (15.3-44.8); MCV 89.7 fL (80-100); MPV 7.5 fL (7.6-11.3); RBC Red Blood Cell Count 4.75 M/uL (4.33-5.43)
[2022-09-02 13:19] LABS: SARS-CoV-2 Antigen Rapid Res Negative (Negative)
[2022-09-02 13:25] LABS: Protime INR 1.11
[2022-09-02 13:31] LABS: ALT/SGPT 30 U/L (12-78); AST/SGOT 22 U/L (15-37); Albumin 3.7 g/dL (3.4-5.0); Alkaline Phosphatase 66 U/L (45-117); BUN Blood Urea Nitrogen 15 mg/dL (7-18); Bicarbonate 36 mmol/L (21-32); Bilirubin Direct 0.2 mg/dL (0-0.2); Bilirubin Total 0.4 mg/dL (0.2-1.0); Glomerular Filtration Rate 113 ml/min (=/>90); Glucose Level 116 mg/dL (74-106); Magnesium 2.2 mg/dL (1.8-2.4); NT PRO-BNP 151 pg/mL (<125); Potassium 3.7 mmol/L (3.5-5.1); Protein, Total 8.2 g/dL (6.4-8.2); Sodium Level 141 mmol/L (136-145); Troponin High Sensitivity 9.4 pg/mL (<58.9)
--- NOTE | 2022-09-02 13:35 | ER ---
Nurse's Notes [facility] Name: Tyler Riley Age: 62 yrs Sex: Male : 1960 Arrival Date: 09/02/2022 Time: 11:28 Bed 17 Private MD: Diagnosis: Dementia in other diseases classified elsewhere without behavioral disturbance;Dyspnea-aspiration;Weakness;Acute and chronic respiratory failure with hypercapnia Presentation: 09/02 11:28 Chief complaint: EMS states: PER [facility], "STILL NOT ACTING RIGHT" BUT UNABLE TO bp QUALIFY EXACT COMPLAINT. Coronavirus screen: At this time, the client does not indicate any symptoms associated with coronavirus-19. Ebola Screen: No symptoms or risks identified at this time. Initial Sepsis Screen: Does the patient meet any 2 criteria? No. Patient's initial sepsis screen is negative. Does the patient have a suspected source of infection? No. Patient's initial sepsis screen is negative. Risk Assessment: Do you want to hurt yourself or someone else? Unable to obtain. Onset of symptoms is unknown. Care prior to arrival:. Care prior to arrival: Glucose check: 130. 11:28 Method Of Arrival: EMS: [facility] bp 11:28 Acuity: POLLY 3 bp Triage Assessment: 11:35 General: Appears in no apparent distress. Behavior is unresponsive. Pain: Unable to use bp pain scale. Patient is unresponsive. EENT: No deficits noted. Neuro: AT BASELINE. Cardiovascular: No deficits noted. Respiratory: No deficits noted. GI: No signs and/or symptoms were reported involving the gastrointestinal system. : No signs and/or symptoms were reported regarding the genitourinary system. Derm: No deficits noted. Musculoskeletal: No deficits noted. Historical: - Allergies: 11:32 No Known Allergies; bp - PMHx: 11:32 Aphasia; Dementia; Hypercholesterolemia; Hypertensive disorder; Hypothyroidism; Pick's bp disease; - Immunization history:: Adult Immunizations up to date. - Social history:: Smoking status: Patient denies any tobacco usage or history of. - Family history:: not pertinent. Screenin:43 Abuse screen: Denies threats or abuse. Denies injuries from another. Nutritional bp screening: No deficits noted. Tuberculosis screening: No symptoms or risk factors identified. Fall Risk None identified. Assessment: 11:43 General: SEE TRIAGE NOTE. bp 12:30 Reassessment: RT PENDING. bp 14:30 Reassessment: No changes from previously documented assessment. Patient and/or family bp updated on plan of care and expected duration. Pain level reassessed. 16:27 Reassessment: EJ PLACED BY PROVIDER. bp 17:09 Reassessment: ADMIT COMPLETE, REPORT TO DEDE WEINER. bp Vital Signs: 11:28 BP 140 / 90; Pulse 75; Resp 26; Temp 97.1; Pulse Ox 97% on 2 lpm NC; bp 13:00 BP 147 / 91; Pulse 91; Resp 16; Pulse Ox 100% ; bp 14:00 BP 142 / 91; Pulse 82; Resp 16; Pulse Ox 100% ; bp 15:00 BP 139 / 91; Pulse 86; Resp 16; Pulse Ox 100% ; bp 16:00 BP 137 / 79; Pulse 74; Resp 16; Pulse Ox 99% ; bp ED Course: 11:28 Patient arrived in ED. bp 11:31 Triage completed. bp 11:35 Gilberto Dutton MD is Attending Physician. laura 11:43 Arm band placed on. bp 11:43 Patient has correct armband on for positive identification. Bed in low position. Call bp light in reach. Side rails up X2. 11:45 XRAY Chest (1 view) Sent. bp 11:56 CT Head Brain wo Cont In Process Unspecified. EDMS 11:58 Robel Moreno, REGINE is Primary Nurse. bp 11:59 XRAY Chest (1 view) In Process Unspecified. EDMS 13:30 Erwin Nina is Hospitalizing Provider. laura 16:25 Inserted saline lock: 20 gauge in left EJ, using aseptic technique. bp 17:10 No provider procedures requiring assistance completed. Patient admitted, IV remains in bp place. Administered Medications: 12:55 Drug: NS 0.9% 500 ml Route: IV; Rate: bolus; Site: right upper arm; bp 14:11 Follow up: IV Status: Completed infusion; IV Intake: 500ml bp 12:55 Drug: NS 0.9% 1000 ml Route: IV; Rate: 125 ml/hr; Site: right upper arm; bp 13:45 Drug: Zosyn (piperacillin-tazobactam) 3.375 grams Route: IVPB; Infused Over: 60 mins; bp Site: right antecubital; 14:11 Drug: Thiamine 100 mg Route: IV; Rate: per protocol; Site: right antecubital; bp Medication: 11:43 VIS not applicable for this client. bp Intake: 14:11 IV: 500ml; Total: 500ml. bp Outcome: 13:34 Decision to Hospitalize by Provider. laura 17:09 Admitted to Med/surg accompanied by tech, family with patient, via stretcher, room 404, bp with oxygen, with chart, Report called to DEDE WEINER 17:09 Condition: stable 17:09 Instructed on the need for admit. 17:51 Patient left the ED. eb Signatures: Dispatcher [employer] EDAZ Gilberto Dutton MD MD cha Peltier, Brian, RN RN Lydia Zarate
--- NOTE | 2022-09-02 13:35 | EDPHYS ---
Physician Documentation [facility] Name: Tyler Riley Age: 62 yrs Sex: Male : 1960 Arrival Date: 09/02/2022 Time: 11:28 Bed 17 Private MD: ED Physician Gilberto Dutton HPI: 09/02 12:57 This 62 yrs old Male presents to ER via EMS with complaints of SENT FROM laura [facility] FOR "STILL NOT ACTING RIGHT". 12:57 The patient has shortness of breath with light activity. Onset: The symptoms/episode laura began/occurred 1 day(s) ago. Duration: The symptoms are continuous, and are steadily getting worse. The patient's shortness of breath has no apparent modifying factors. weak, dyspnea, ams. The patient presents with confusion, decreased responsiveness. Possible causes: CVA or TIA, low blood sugar. Associated signs and symptoms: Pertinent positives: non-productive cough. Severity of symptoms: At their worst the symptoms were moderate in the emergency department the symptoms are unchanged. Historical: - Allergies: 11:32 No Known Allergies; bp - PMHx: 11:32 Aphasia; Dementia; Hypercholesterolemia; Hypertensive disorder; Hypothyroidism; Pick's bp disease; - Immunization history:: Adult Immunizations up to date. - Social history:: Smoking status: Patient denies any tobacco usage or history of. - Family history:: not pertinent. ROS: 12:57 Constitutional: Negative for fever, chills, and weight loss, Eyes: Negative for injury, laura pain, redness, and discharge, ENT: Negative for injury, pain, and discharge, Neck: Negative for injury, pain, and swelling, Cardiovascular: Negative for chest pain, palpitations, and edema, Abdomen/GI: Negative for abdominal pain, nausea, vomiting, diarrhea, and constipation, Back: Negative for injury and pain, : Negative for injury, bleeding, discharge, and swelling, MS/Extremity: Negative for injury and deformity, Skin: Negative for injury, rash, and discoloration, Psych: Negative for depression, anxiety, suicide ideation, homicidal ideation, and hallucinations, Allergy/Immunology: Negative for hives, rash, and allergies, Endocrine: Negative for neck swelling, polydipsia, polyuria, polyphagia, and marked weight changes, Hematologic/Lymphatic: Negative for swollen nodes, abnormal bleeding, and unusual bruising. 12:57 Respiratory: Positive for cough, "sounds productive". 12:57 Neuro: Positive for altered mental status, speech changes, weakness, difficulty swallowing,aphasic. Exam: 12:57 Constitutional: This is a well developed, well nourished patient who is awake, alert, laura and in no acute distress. Head/Face: Normocephalic, atraumatic. Eyes: Pupils equal round and reactive to light, extra-ocular motions intact. Lids and lashes normal. Conjunctiva and sclera are non-icteric and not injected. Cornea within normal limits. Periorbital areas with no swelling, redness, or edema. ENT: Nares patent. No nasal discharge, no septal abnormalities noted. Tympanic membranes are normal and external auditory canals are clear. Oropharynx with no redness, swelling, or masses, exudates, or evidence of obstruction, uvula midline. Mucous membranes moist. Neck: Trachea midline, no thyromegaly or masses palpated, and no cervical lymphadenopathy. Supple, full range of motion without nuchal rigidity, or vertebral point tenderness. No Meningismus. Chest/axilla: Normal chest wall appearance and motion. Nontender with no deformity. No lesions are appreciated. Cardiovascular: Regular rate and rhythm with a normal S1 and S2. No gallops, murmurs, or rubs. Normal PMI, no JVD. No pulse deficits. Abdomen/GI: Soft, non-tender, with normal bowel sounds. No distension or tympany. No guarding or rebound. No evidence of tenderness throughout. Back: No spinal tenderness. No costovertebral tenderness. Full range of motion. Male : Normal genitalia with no discharge or lesions. MS/ Extremity: Pulses equal, no cyanosis. Neurovascular intact. Full, normal range of motion. Psych: Awake, alert, with orientation to person, place and time. Behavior, mood, and affect are within normal limits. 12:57 ECG was reviewed by the Attending Physician. 12:57 Respiratory: the patient does not display signs of respiratory distress, Respirations: labored breathing, that is mild, Breath sounds: rales, are not appreciated, bronchial sounds, that are mild, are scattered, decreased breath sounds, that are mild, are located in both bases, rhonchi, that are mild, stridor, is not appreciated, + upper airway congestion. Respiratory rate: 26 Vital Signs: 11:28 BP 140 / 90; Pulse 75; Resp 26; Temp 97.1; Pulse Ox 97% on 2 lpm NC; bp 13:00 BP 147 / 91; Pulse 91; Resp 16; Pulse Ox 100% ; bp 14:00 BP 142 / 91; Pulse 82; Resp 16; Pulse Ox 100% ; bp 15:00 BP 139 / 91; Pulse 86; Resp 16; Pulse Ox 100% ; bp 16:00 BP 137 / 79; Pulse 74; Resp 16; Pulse Ox 99% ; bp MDM: 11:35 Patient medically screened. laura 13:11 Differential diagnosis: Anxiety Reaction CHF exacerbation, Chronic Obstructive laura Pulmonary Disease pneumonia, reactive airway disease. Antibiotic administration: Not indicated. Differential Diagnosis altered mental status, sepsis, flu. Differential Diagnosis: CVA, electrolyte abnormality, hypoglycemia, intracranial bleed, pneumonia, seizure, TIA, volume depletion. The patient's Wells Deep Vein Thrombosis Score was calculated as follows: Total Score: 0-2 Pts- Low Risk. The patient's pulmonary embolism risk score was calculated as follows: Total Score: 0-2 points. This patient was found to be at low risk for a pulmonary embolism by using the Well's assessment criteria. Immunization status: Influenza vaccine: Data reviewed: vital signs, nurses notes, lab test result(s), EKG, radiologic studies, CT scan, plain films. 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 Test interpretation: by ED physician or midlevel provider: ECG, plain radiologic studies. Counseling: I had a detailed discussion with the patient and/or guardian regarding: the historical points, exam findings, and any diagnostic results supporting the discharge/admit diagnosis, lab results, radiology results, the need for further work-up and treatment in the hospital. 09/02 11:36 Order name: Basic Metabolic Panel; Complete Time: 13:53 [facility] 09/02 11:36 Order name: CBC with Diff; Complete Time: 15:25 [facility] 09/02 11:36 Order name: LFT's; Complete Time: 13:53 [facility] 09/02 11:36 Order name: Magnesium; Complete Time: 13:53 [facility] 09/02 11:36 Order name: NT PRO-BNP; Complete Time: 13:53 [facility] 09/02 11:36 Order name: PT-INR; Complete Time: 13:30 [facility] 09/02 11:36 Order name: Troponin HS; Complete Time: 13:53 [facility] 09/02 11:36 Order name: SARS RAPID; Complete Time: 13:30 [facility] 09/02 11:36 Order name: Acetaminophen; Complete Time: 13:53 [facility] 09/02 11:36 Order name: ETOH Level; Complete Time: 13:53 [facility] 09/02 11:36 Order name: Ptt, Activated; Complete Time: 13:30 [facility] 09/02 11:36 Order name: Salicylate; Complete Time: 13:53 [facility] 09/02 11:36 Order name: Urine Drug Screen [facility] 09/02 11:58 Order name: Lactate w/ 2H reflex if indic.; Complete Time: 13:53 09/02 11:36 Order name: XRAY Chest (1 view); Complete Time: 13:30 [facility] 09/02 11:36 Order name: CT Head Brain wo Cont; Complete Time: 13:30 [facility] 09/02 11:58 Order name: Blood Culture Adult (2) 09/02 13:45 Order name: TSH; Complete Time: 15:25 [facility] 09/02 13:45 Order name: Valproic Acid (depakote); Complete Time: 15:25 [facility] 09/02 13:53 Order name: ABG [facility] 09/02 14:55 Order name: CBC Smear Scan; Complete Time: 15:25 [facility] 09/02 15:06 Order name: T4 Free; Complete Time: 15:25 [facility] 09/02 15:26 Order name: BIPAP [facility] 09/02 16:41 Order name: ABG Arterial Blood Gas [facility] 09/02 11:36 Order name: EKG; Complete Time: 11:37 [facility] 09/02 11:36 Order name: Cardiac monitoring; Complete Time: 13:02 [facility] 09/02 11:36 Order name: EKG - Nurse/Tech; Complete Time: 13:02 [facility] 09/02 11:36 Order name: IV Saline Lock; Complete Time: 13:02 [facility] 09/02 11:36 Order name: Labs collected and sent; Complete Time: 13:02 [facility] 09/02 11:36 Order name: O2 Per Protocol; Complete Time: 11:44 [facility] 09/02 11:36 Order name: O2 Sat Monitoring; Complete Time: 11:44 [facility] EC:57 Rate is 66 beats/min. Rhythm is regular. QRS [place] is Normal. [place] interval is normal. QRS laura interval is normal. QT interval is normal. No Q waves. T waves are Normal. No ST changes noted. Clinical impression: NSR w/ Non-specific ST/T Changes and No evidence of ischemia. Administered Medications: 12:55 Drug: NS 0.9% 500 ml Route: IV; Rate: bolus; Site: right upper arm; bp 14:11 Follow up: IV Status: Completed infusion; IV Intake: 500ml bp 12:55 Drug: NS 0.9% 1000 ml Route: IV; Rate: 125 ml/hr; Site: right upper arm; bp 13:45 Drug: Zosyn (piperacillin-tazobactam) 3.375 grams Route: IVPB; Infused Over: 60 mins; bp Site: right antecubital; 14:11 Drug: Thiamine 100 mg Route: IV; Rate: per protocol; Site: right antecubital; bp Disposition Summary: 09/02/22 13:34 Hospitalization Ordered Hospitalization Status: Inpatient Admission laura Provider: Erwin Nina cha Location: Telemetry/MedSurg (Inpatient) laura Condition: Fair laura Problem: new laura Symptoms: have improved laura Bed/Room Type: Standard laura Room Assignment: 404(09/02/22 15:40) eb Diagnosis - Dementia in other diseases classified elsewhere without behavioral disturbance laura - Dyspnea - aspiration laura - Weakness laura - Acute and chronic respiratory failure with hypercapnia laura Forms: - Medication Reconciliation Form laura - SBAR form laura Signatures: Dispatcher [employer] EDME Gilberto Dutton MD MD cha Peltier, Brian RN RN Lydia Zarate Corrections: (The following items were deleted from the chart) 11:44 11:36 Suicide Screening ([place]) ordered. laura bp 15:40 13:34 laura eb
--- NOTE | 2022-09-02 13:42 | P.HP ---
Certification for Inpatient Patient admitted to: Inpatient With expected LOS: >2 Midnights Practitioner: I am a practitioner with admitting privileges, knowledge of patient current condition, hospital course, and medical plan of care. Services: Services provided to patient in accordance with Admission requirements found in Title 42 Section 412.3 of the Code of Federal Regulations Patient History Date of Service: 09/02/22 Reason for admission: Respiratory distress History of Present Illness: 62-year-old patient with a history of advanced Alzheimer dementia was transferred from detention immediately to the emergency department due to shortness of breath. Patient noted to be in respiratory distress. Aspiration suspected by the detention. was not at his bedside during my examination and there was no one to provide history. History was obtained from the ED provider. Chest x-ray shows no acute process. Patient seen on BiPAP during my examination in the ED. He is awake but nonverbal. No leukocytosis. Patient is hospitalized for further management. Allergies No Known Allergies Allergy (Verified 12/13/14 23:53) Home Medications: Fenofibric Acid (Choline) [Fenofibric Acid] 135 mg PO DAILY 12/14/14 Levothyroxine [Synthroid*] 50 mcg PO DAILY 12/14/14 Lisinopril/Hydrochlorothiazide [Zestoretic 10-12.5 mg Tablet] 1 each PO DAILY 12/14/14 Promethazine HCl/Codeine [Promethazine-Codeine Syrup] 5 ml PO Q8HP PRN 10 Days syrup 12/15/14 Ciprofloxacin HCl [Cipro] 500 mg PO BID #8 tab 09/01/22 metroNIDAZOLE [Flagyl] 500 mg PO Q8H #12 tab 09/01/22 - Past Medical/Surgical History Diabetic: No -: htn -: Alzheimer's dementia -: Hyperlipidemia -: Hypothyroidism -: None Psychosocial/ Personal History: Patient is resident at [facility] in memory unit for last 1 month - Family History Father -: Hypertension, Cancer - Social History Alcohol use: Yes CD- Drugs: No Caffeine use: Yes Review of Systems Other: Unable to obtain. Physical Examination - Physical Exam General: In no apparent distress, Confused, Other (Awake) HEENT: Other (On BiPAP) Neck: JVD not distended Respiratory: Clear to auscultation bilaterally, Diminished Cardiovascular: No edema Gastrointestinal: Soft and benign, Non-distended Musculoskeletal: No swelling, No tenderness Integumentary: No rashes Neurological: Other (Moves all extremities), Dementia Lymphatics: No axilla or inguinal lymphadenopathy - Studies Laboratory Data (last 24 hrs) 09/02/22 12:50: PT 12.2, INR 1.11, APTT 32.0 09/02/22 12:50: WBC 10.90, Hgb 14.0, Hct 42.6, Plt Count 317 09/02/22 12:50: Sodium 141, Potassium 3.7 D, BUN 15, Creatinine 0.54 L, Glucose 116 H, Magnesium 2.2, Total Bilirubin 0.4, AST 22, ALT 30, Alkaline Phosphatase 66 Assessment and Plan - Problems (Diagnosis) (1) Shortness of breath Current Visit: Yes Status: Acute (2) Oropharyngeal dysphagia Current Visit: Yes Status: Acute (3) Acute respiratory failure with hypoxia Current Visit: Yes Status: Acute (4) Alzheimer's dementia Current Visit: Yes Status: Acute - Plan The etiology of respiratory distress and acute respiratory failure unclear. Chest x-ray shows no acute disease. Aspiration of food contents suspect. Admit patient to the medical floor Empiric IV Zosyn Follow blood cultures obtained in the ED. Patient recently passed swallow evaluation. Speech therapy to reevaluate swallowing. Wean off BiPAP. Bronchodilators. Haldol as needed for agitation. Continue home medications for advanced dementia. Hospice evaluation - Advance Directives Does patient have a Living Will: No Does patient have a Durable POA for Healthcare: Yes
[2022-09-02] MEDS ORDERED: PIPERACIL/TAZO 3.375 GM VIAL IV ONE (13:45)
[2022-09-02] MEDS ORDERED: NA CHLORIDE 0.9% 100 ML IV ONE (13:45)
[2022-09-02 14:41] LABS: Valproic Acid (Depakene) Level 23.5 ug/mL (50-100)
[2022-09-02 14:52] LABS: Thyroid Stimulating Hormone 3.79 uIU/mL (0.360-3.740)
[2022-09-02 14:55] LABS: Blood Morphology Comment NOT SEEN (NOT SEEN); Platelet Estimate ADEQ; White Blood Cell Scan OK (OK)
[2022-09-02 16:37] LABS: Blood O2 Saturation 98.9 % (92-98.5)
[2022-09-02 16:38] LABS: Arterial Blood Carboxyhemoglob 1.2 % (0-1.5); Blood Gas Oxyhemoglobin 96.5 % (94-97)
[2022-09-02] MEDS ORDERED: ALBUTEROL 2.5 MG/3 ML NEB SOL NEB PRN (18:09)
[2022-09-02] MEDS ORDERED: ONDANSETRON 4 MG/2 ML VIAL IV PRN (18:09)
[2022-09-02] MEDS: D5 0.9 NS 1,000 ML IV SCH (18:31)
[2022-09-02] MEDS: PIPER TAZO 3.375 GM in NA CHLORIDE 0.9% 100 ML IV SCH (18:36)
[2022-09-02] MEDS ORDERED: HALOPERIDOL LACT 5 MG/ML INJ IV PRN (18:43)
[2022-09-02] MEDS: ENOXAPARIN 40 MG/0.4 ML SQ SCH (20:00)
[2022-09-02 23:16] VITALS: BMI 21.1
[2022-09-03] MEDS: PIPER TAZO 3.375 GM in NA CHLORIDE 0.9% 100 ML IV SCH ×3 (01:28→16:40)
[2022-09-03 04:06] LABS: Absolute Lymphocytes (CBC) 0.8 K/uL (0.7-4.9); Hematocrit 33.5 % (39.6-49.0); Lymphocytes % 7.7 % (15.3-44.8); MCV 89.2 fL (80-100); MPV 7.4 fL (7.6-11.3); RBC Red Blood Cell Count 3.75 M/uL (4.33-5.43)
[2022-09-03] MEDS: D5 0.9 NS 1,000 ML IV SCH ×2 (04:09→06:51)
[2022-09-03 04:31] LABS: Magnesium 1.9 mg/dL (1.8-2.4); Phosphorus 2.8 mg/dL (2.5-4.9); Potassium 3.6 mmol/L (3.5-5.1)
[2022-09-03] MEDS ORDERED: KCL 20 MEQ/100 mL IVPB 20 MEQ/100 ML BAG IV SCH (07:00)
[2022-09-03] MEDS: ENOXAPARIN 40 MG/0.4 ML SQ SCH (09:30)
[2022-09-03 14:16] VITALS: O2SAT 95
--- NOTE | 2022-09-03 16:46 | P.DS ---
Admission Date: 09/02/22 Discharge Date: 09/03/22 Disposition: HOSPICE-MEDICAL FACILITY Discharge Condition: FAIR Reason for Admission: Respiratory distress - Problems (1) Shortness of breath Current Visit: Yes Status: Acute (2) Oropharyngeal dysphagia Current Visit: Yes Status: Acute (3) Acute respiratory failure with hypoxia Current Visit: Yes Status: Acute (4) Alzheimer's dementia Current Visit: Yes Status: Acute Brief History of Present Illness: 62-year-old patient with a history of advanced Alzheimer dementia [facility] department due to shortness of breath. Patient noted to be in respiratory distress. Aspiration suspected by the [facility]. was not at his bedside during my examination and there was no one to provide history. History was obtained from the ED provider. Chest x-ray shows no acute process. Patient seen on BiPAP during my examination in the ED. He is awake but nonverbal. No leukocytosis. Patient was hospitalized for further management. Hospital Course: Patient admitted to the medical floor, placed on BiPAP for CO2 retention. Chest x-ray did not show any infiltrate. Acute respiratory failure was managed with bronchodilators. Patient was eventually off BiPAP to room air. Patient respiratory distress considered secondary to aspiration. He has a history of oropharyngeal dysphagia. Family opted for hospice. Patient is [facility]. Vital Signs/Physical Exam: Temp Pulse Resp BP Pulse Ox 98.6 F 96 H 16 148/83 H 95 09/03/22 12:00 09/03/22 12:00 09/03/22 12:00 09/03/22 12:00 09/03/22 12:00 General: Other (Awake, nonverbal) HEENT: Mucous membr. moist/pink Neck: JVD not distended Respiratory: Clear to auscultation bilaterally, Normal air movement Cardiovascular: No edema, Regular rate/rhythm, Normal S1 S2 Gastrointestinal: Soft and benign, Non-distended Musculoskeletal: No swelling Laboratory Data at Discharge: WBC 9.70 K/uL (4.3-10.9) 09/03/22 03:51 Hgb 11.3 g/dL (13.6-17.9) L D 09/03/22 03:51 Hct 33.5 % (39.6-49.0) L 09/03/22 03:51 Plt Count 287 K/uL (152-406) 09/03/22 03:51 PT 12.2 SECONDS (9.5-12.5) 09/02/22 12:50 INR 1.11 09/02/22 12:50 APTT 32.0 SECONDS (24.3-36.9) 09/02/22 12:50 Sodium 144 mmol/L (136-145) 09/03/22 03:51 Potassium 3.6 mmol/L (3.5-5.1) 09/03/22 03:51 BUN 20 mg/dL (7-18) H 09/03/22 03:51 Creatinine 0.45 mg/dL (0.55-1.3) L 09/03/22 03:51 Glucose 134 mg/dL (74-106) H 09/03/22 03:51 Phosphorus 2.8 mg/dL (2.5-4.9) 09/03/22 03:51 Magnesium 1.9 mg/dL (1.8-2.4) 09/03/22 03:51 Total Bilirubin 0.4 mg/dL (0.2-1.0) 09/02/22 12:50 AST 22 U/L (15-37) 09/02/22 12:50 ALT 30 U/L (12-78) 09/02/22 12:50 Alkaline Phosphatase 66 U/L (45-117) 09/02/22 12:50 Home Medications: Amlodipine [Norvasc*] 1 tab PO DAILY 09/03/22 Aspirin Chewable [Aspirin Chewable*] 1 tab PO DAILY 09/03/22 Cyanocobalamin (Vitamin B-12) [B-12] 1 tab SL DAILY 09/03/22 Divalproex Sodium 1 tab PO BID 09/03/22 Divalproex Sodium 1 tab PO SEECOM PRN 09/03/22 Dutasteride 1 cap PO DAILY 09/03/22 Levothyroxine Sodium [Levothyroxine] 1 cap PO DAILY 09/03/22 clonazePAM [Clonazepam] 1 tab PO SEECOM PRN 09/03/22 Physician Discharge Instructions: Pleasure feeding on hospice. Followup: Tucker Lucero MD [Primary Care Provider] - Time spent managing pt's care (in minutes): 34
[2022-09-03 16:51] VITALS: BP 142/77; TEMP 99.1
--- NOTE | 2022-09-04 19:18 | EKG ---
Test Date: 2022-09-02 Test Time: 12:53:03 Production Welder: SETH MEASUREMENT RESULTS: Intervals: Rate: 66 WV: 112 QRSD: 90 QT: 406 QTc: 425 [place]: P: 56 WV: 112 QRS: 71 T: 66 INTERPRETIVE STATEMENTS: Sinus rhythm with marked sinus arrhythmia Otherwise normal ECG Compared to ECG 08/29/2022 20:19:42 Sinus tachycardia no longer present Electronically Signed On 09-04-22 19:11:04 [employer]OR [employer]PERATIONS by Riley Cao
== END 2022-09-03 21:20 | disposition hospice, inpatient (51) | DRG 189 ==
LOC: ER 11:23 → ERHOLD 13:37 → 4TH 17:11 → 2ND 21:03
PROVIDERS: ADMIT Internal Medicine; ATTEND Internal Medicine
PROC: 5A09457 Assistance with Respiratory Ventilation, 24-96 Consecutive Hours, Continuous Positive Airway Pressure (ICD-10-PCS; principal; 2022-09-02)
DX: J96.01 Acute respiratory failure with hypoxia (principal); J96.22 Acute and chronic respiratory failure with hypercapnia; E03.9 Hypothyroidism, unspecified; E78.5 Hyperlipidemia, unspecified; G30.9 Alzheimer's disease, unspecified; F02.80 Dementia in other diseases classified elsewhere, unspecified severity, without behavioral disturbance, psychotic disturbance, mood disturbance, and anxiety; T17.928A Food in respiratory tract, part unspecified causing other injury, initial encounter; R13.12 Dysphagia, oropharyngeal phase; Z51.5 Encounter for palliative care; Z79.890 Hormone replacement therapy; Z79.899 Other long term (current) drug therapy; Z20.822 Contact with and (suspected) exposure to COVID-19
CPT/HCPCS: 36415; 70450; 71045; 80048; 80076; 80164; 80320; 80329; 82805; 83605; 83735; 83880; 84100; 84439; 84443; 84484; 85025; 85610; 85730; 87040; 87811; 93005; 94660; 94760; 96361; 96374; 96375; 99285; J1650; J2543; J3480; J7030; J7042